=== PATIENT | male | born 1955 | race Caucasian/White ===

== ENCOUNTER 2021-10-22 19:13 | Emergency (ER) | payer MEDICARE, BC, SELFPAY ==
--- NOTE | ~2021-10-22 | XR_ITS ---
EXAMINATION: XR CHEST CLINICAL INFORMATION: Shortness of breath and positive for Covid. COMPARISON: None TECHNIQUE: AP view of the chest was obtained. FINDINGS: Multifocal hazy airspace opacities. Questionable small right pleural effusion. No pneumothorax. Normal appearance of the cardiomediastinal silhouette. No acute osseous findings. Moderate degenerative changes of the right shoulder. XR/XR chest 1V IMPRESSION: Multifocal airspace opacities worrisome for multifocal pneumonia. Small right pleural effusion.
[2021-10-22 19:17] VITALS: BP 127/74; PULSE 87; RESP 16; TEMP 37.2; O2SAT 95; BMI 36.3
[2021-10-22 19:24] VITALS: PULSE 82; RESP 16
--- NOTE | 2021-10-22 19:29 | ED.GENADULT ---
HPI - General Adult General Chief complaint: Fever Stated complaint: +Covid/Fever Time Seen by Provider: 10/22/21 19:19 Source: patient Mode of arrival: ambulatory Limitations: no limitations History of Present Illness HPI narrative: 66 y/o male with history of unprovoked bilateral PEs in 2017 on and diagnosis of COVID-19 on 10/19 presents to the ER from home c/o diarrhea and weakness. He also has some mild SOB as well. His diarrhea started yesterday. Today he reports 3-4 episodes of diffuse watery diarrhea. No associated abdominal pain. No blood in his diarrhea. He states he had fever 103 yesterday that improved with Tylenol. He came to the ER to ?get checked out and be safe.? These due to go to get monoclonal antibodies tomorrow. He states he had the Pfizer vaccine back in January in February. His shortness of breath is very mild and only with exertion. He has no associated chest pain. MD complaint: Diarrhea and COVID-19 Onset (ago): day(s) (1) Location: head, chest and abdomen Radiation: non-radiation Severity: moderate Quality: aching Pain Consistency: intermittent Relieving factors: none Associated symptoms: fever/chills, headaches, loss of appetite, malaise, nausea/vomiting and shortness of breath Treatments prior to arrival: none Related Data Allergies Allergy/AdvReac Type Severity Reaction Status Date / Time No Known Allergies Allergy Verified 10/22/21 19:24 Review of Systems Review of Systems: Constitutional: + Fever, + Chills ENT/Mouth: No sore throat, No Rhinorrhea, No Swallowing Difficulty Eyes: No Eye Pain, No Swelling, No Redness Cardiovascular: No Chest Pain, + SOB, No Orthopnea, No Edema Respiratory: No Cough, No Sputum, No Wheezing, No dyspnea Gastrointestinal: No Nausea, No Vomiting, + Diarrhea, No abdominal Pain, No Hematochezia, No Melena Genitourinary: No Dysuria, No Urinary Frequency, No Hematuria Musculoskeletal: No joint pain, No Myalgias Skin: No Skin Lesions, No rash Neuro: No Weakness, No Numbness, No Dizziness, + Headache Psych: + Anxiety/Panic, No Depression Heme/Lymph: No Bruising, No Lymphadenopathy Endocrine: No Polyuria, No Polydipsia PMFSH Social History Social History Advance Directives: No Advance Directives Information Provided: No Physical Exam Vital Signs: Vital Signs: Last Vital Signs Temp 98.9 F 10/22/21 19:17 Pulse 82 10/22/21 19:24 Resp 16 10/22/21 19:24 BP 127/74 10/22/21 19:17 Pulse Ox 95 10/22/21 19:17 Body Mass Index 36.3 Appearance: Alert. Oriented X3. No acute distress. Eyes: Pupils equal, round and reactive to light. ENT: Pharynx normal. Neck: Normal inspection. Neck supple. CVS: Normal heart rate and rhythm. Pulses normal. Respiratory: No respiratory distress. Breath sounds normal. Abdomen: Softly distended and nontender. +BS x4 Skin: Skin warm and dry. Normal skin color. Normal skin turgor. No rashes. Extremities: No lower extremity edema. No calf tenderness Neuro: Oriented X 3. No motor deficit. No sensory deficit. Course Course Course Narrative: 66-year-old male with history of PEs on Eliquis presents to the ER with diarrhea in the setting of positive COVID-19. He states he is mildly shortness of breath but has no chest pain. His vital signs arrival are within normal limits. He appears well, nontoxic. His lungs are clear. His abdomen is nontender and benign. Will get basic lab workup to rule out dehydration given his reports of diffuse diarrhea. Also get chest x-ray given his shortness of breath. He is on Eliquis and has not missed any doses, doubt recurrent PE. Reevaluation(s) Reevaluation #1: Lab workup is unremarkable. Chest x-ray showing findings consistent with multifocal pneumonia. Nursing did an ambulatory pulse oximetry in the room and with exertion in patient's SpO2 remained 95%. He was not short of breath or dyspneic. He completed IV fluids and was given dose of Decadron for pneumonia. At this time is no role for antibiotics given this is a viral pneumonia. He is tolerating p.o. and feels better after IV fluids and Imodium. He has had no diarrhea here. He is stable for discharge home with supportive care and close outpatient follow-up. He will go to get his monoclonal antibodies tomorrow. Patient agrees with plan was giving warning signs come back to the ER. Medical Decision Making Lab Data Result diagrams: 10/22/21 19:52 10/22/21 19:52 Labs: Lab Results 10/22/21 10/22/21 10/22/21 Range/Units 19:52 19:52 20:43 WBC 8.5 (4.8-10.8) X10*3/uL RBC 4.62 (4.60-5.80) X10*6/uL Hgb 13.8 L (14.0-18.0) g/dl Hct 40.8 L (42.0-52.0) % MCV 88.3 (80.0-98.0) fL MCH 29.9 (27.0-33.0) pg MCHC 33.8 (31.0-36.0) g/dl RDW 13.3 (11.0-16.0) % Plt Count 144 L (160-400) X10*3/uL MPV 9.4 (9.4-12.4) fL Immature Gran % (Auto) 0.2 (0.0-0.4) % Neut % (Auto) 85.5 H (45-73) % Lymph % (Auto) 9.8 L (20-40) % [place] % (Auto) 4.4 (2-11) % Eos % (Auto) 0.0 (0-4) % Baso % (Auto) 0.1 (0-2) % Lymph # (Auto) 0.8 L (1.2-4.9) X10*3/uL [place] # (Auto) 0.4 (0.1-1.2) X10*3/uL Eos # (Auto) 0.0 (0.0-0.4) X10*3/uL Baso # (Auto) 0.0 (0.0-0.2) X10*3/uL Abs Immat Gran (auto) 0.02 (0.00-0.03) X10*3/uL Absolute Neuts (auto) 7.2 (2.0-8.3) x10*3/uL Absolute Nucleated RBC 0.000 (0.0-0.012) X10*3/uL Nucleated RBC % (auto) 0.0 (0.0-0.2) /100WBC Sodium 134 L (135-145) mmol/L Potassium 3.8 (3.3-5.1) mmol/L Chloride 100 (96-108) mmol/L Carbon Dioxide 23 (22-29) mmol/L Anion Gap 15 (12-20) BUN 12 (9-16) mg/dL Creatinine 1.09 (0.5-1.4) mg/dL Estim Creat Clear Calc 93.4 Estimated GFR > 60 Random Glucose 131 H (60-115) mg/dL Calcium 8.2 L (8.4-10.2) mg/dL Magnesium 1.6 (1.6-2.6) mg/dL Total Bilirubin 0.4 (0.0-1.0) mg/dL AST 61 H (5-37) U/L ALT 42 H (0-40) U/L Alkaline Phosphatase 70 (39-117) U/L Total Protein 6.6 (6.5-8.0) g/dL Albumin 3.7 (3.5-5.0) g/dL Urine Color YELLOW Urine Appearance CLEAR Urine pH 6.0 (5.0-8.0) Ur Specific [place] 1.015 (1.005-1.025) Urine Protein 2+ H (NEG-TRACE) MG/DL Urine Glucose (UA) NEG (NEG) MG/DL Urine Ketones NEG (NEG) MG/DL Urine Blood 2+ H (NEG) Urine Nitrite NEG (NEG) Ur Leukocyte Esterase NEG (NEG) Urine RBC 1-4 (0) /HPF Urine WBC 0 (0-4) /HPF Ur Squamous Epith Cells 1+ /LPF Urine Bacteria 1+ /LPF Discharge Plan Discharge Clinical Impression: COVID-19 Diarrhea Qualifiers: Diarrhea type: unspecified type Qualified Code(s): R19.7 - Diarrhea, unspecified Patient Disposition: Home, Self-Care Instructions: Covid-19 Viral Syndrome and Novel Coronavirus (ED) Hey/Ath, Acute Diarrhea (ED) Additional Instructions: Your lab workup today was unremarkable. No evidence of dehydration. Your chest x-ray showed findings consistent with COVID pneumonia. Your oxygen levels remained stable. If your shortness of breath worsens come back to the hospital. Recommend monitoring her oxygen levels at home with a pulse oximeter. If oxygen level drops less than 90% come to the emergency room. Rest and stay hydrated. Make sure to drink plenty of water. Recommend [id number] Imodium or Pepto-Bismol as needed for diarrhea. Follow-up with your doctor next week.
[2021-10-22] MEDS: 0.9 % Sodium Chloride 1,000 ML 999 ML IVCONT (19:55)
[2021-10-22 19:57] LABS: Basophils Percent Auto 0.1 % (0-2); Hematocrit 40.8 % (42.0-52.0); Hemoglobin 13.8 g/dl (14.0-18.0); Imm Gran Abs Auto 0.02 X10*3/uL (0.00-0.03); Imm Gran Pct Auto 0.2 % (0.0-0.4); Lymphocytes Absolute Auto 0.8 X10*3/uL (1.2-4.9); Lymphocytes Percent Auto 9.8 % (20-40); MANUAL DIFF FLAG NO; Mean Corpuscular HGB Conc 33.8 g/dl (31.0-36.0); Mean Corpuscular Hemoglobin 29.9 pg (27.0-33.0); Mean Corpuscular Volume 88.3 fL (80.0-98.0); Mean Platelet Volume 9.4 fL (9.4-12.4); Monocytes Absolute Auto 0.4 X10*3/uL (0.1-1.2); Monocytes Percent Auto 4.4 % (2-11); Neutrophils Absolute Auto 7.2 x10*3/uL (2.0-8.3); Neutrophils Percent Auto 85.5 % (45-73); Platelet Count 144 X10*3/uL (160-400); Red Blood Count 4.62 X10*6/uL (4.60-5.80); Red Cell Distribution Width 13.3 % (11.0-16.0); White Blood Count 8.5 X10*3/uL (4.8-10.8)
[2021-10-22] MEDS: Loperamide HCl 2 MG CAPSULE 4 MG PO (20:21)
[2021-10-22] MEDS: dexAMETHasone sod phosphate 4 MG/ML VIAL 8 MG IVPUSH (20:22)
[2021-10-22 20:27] LABS: Alanine Aminotransferase 42 U/L (0-40); Albumin Level 3.7 g/dL (3.5-5.0); Alkaline Phosphatase 70 U/L (39-117); Anion Gap 15 (12-20); Aspartate Amino Transferase 61 U/L (5-37); Bilirubin Total 0.4 mg/dL (0.0-1.0); Blood Urea Nitrogen 12 mg/dL (9-16); Calcium 8.2 mg/dL (8.4-10.2); Carbon Dioxide 23 mmol/L (22-29); Chloride 100 mmol/L (96-108); Creatinine Clr Calc Pharmacy 93.4; Estimated Glomerular Filt Rate > 60; Glucose Random 131 mg/dL (60-115); Magnesium 1.6 mg/dL (1.6-2.6); Potassium 3.8 mmol/L (3.3-5.1); Sodium 134 mmol/L (135-145); Total Protein 6.6 g/dL (6.5-8.0)
--- NOTE | 2021-10-22 20:29 | PC.NURSE ---
Provider at bedside for primary eval and to discuss lab/imaging with pt
--- NOTE | 2021-10-22 20:36 | PC.NURSE ---
this nurse ambulated pt with 02 sat at providers request. pt maintained 02 sat of 95% on room air while ambulating around room. pt denied any SOB, chest pain or dizziness while ambulating. provider notified. pt now in bathroom providing urine sample
[2021-10-22] MEDS: Potassium Chloride ER 20 MEQ TAB.ER.PRT 40 MEQ PO (20:51)
[2021-10-22] MEDS: Magnesium Oxide 400 MG TABLET 800 MG PO (20:52)
[2021-10-22 20:54] LABS: Appearance Urine CLEAR; Color Urine YELLOW; Glucose Urine UA NEG (NEG); Leukocyte Esterase Urine NEG (NEG); Nitrite Urine NEG (NEG); Specific Gravity - Urine 1.015 (1.005-1.025); UACC Culture Trigger NO; Urine Blood 2+ (NEG); Urine Ketones NEG (NEG); Urine Protein 2+ MG/DL (NEG-TRACE)
[2021-10-22 21:01] LABS: Squamous Epithelial Cell Urine 1+ /LPF
[2021-10-22 21:02] LABS: Bacteria Urine 1+ /LPF; WBC Urine 0 /HPF (0-4)
[2021-10-22 21:39] VITALS: BP 118/64; PULSE 77; RESP 16; TEMP 37.5; O2SAT 94
== END 2021-10-22 21:48 | disposition home or self-care (01) ==
PROVIDERS: Physician Assistant Medical; Emergency Provider Internal Medicine; PCP Internal Medicine
DX: U07.1 COVID-19 (principal); R50.9 Fever, unspecified; R19.7 Diarrhea, unspecified; Z79.01 Long term (current) use of anticoagulants; Z79.899 Other long term (current) drug therapy
CPT/HCPCS: 36415; 71045; 80053; 81001; 83735; 85025; 96361; 96374; 99284; J1100

== ENCOUNTER 2021-10-24 15:59 | Emergency (ER) | payer MEDICARE, BC, SELFPAY ==
--- NOTE | ~2021-10-24 | CT_ITS ---
EXAMINATION: CT ANGIOGRAM OF THE CHEST WITH AND WITHOUT CONTRAST (CT PULMONARY ANGIOGRAM FOR PE) CLINICAL INFORMATION: Reason for Exam cough covid + hemoptysis COMPARISON: None TECHNIQUE: Prior to contrast administration, noncontrast localization images were obtained. Subsequently, multidetector volumetric imaging was performed from the thoracic inlet to below the diaphragms following the administration of 70 mL Omnipaque 350 intravenous contrast. No contrast reaction reported Sagittal, coronal, and MIP oblique sagittal reformatted images were obtained on the CT workstation, uploaded to PACS, and reviewed. This CT examination was performed using dose optimization techniques as appropriate, variously including the following: *Automated exposure control *Adjustment of mA and/or kV according to patient size (this includes techniques or standardized protocols for targeted exams where dose is matched to indication/reason for exam; i.e. extremities or head) *Use of iterative reconstruction technique Total exam dose-length product 431 mGy-cm FINDINGS: QUALITY OF STUDY/CONTRAST BOLUS: Satisfactory. PULMONARY ARTERIES: No central or segmental pulmonary emboli. THORACIC AORTA: No aneurysm or dissection. LUNG: Extensive patchy groundglass opacities throughout all lobes. PLEURA: No pleural effusion or pneumothorax. MEDIASTINUM: Normal heart size. No pericardial effusion. Mild mediastinal lymphadenopathy. No evidence of septal bowing or right heart strain. CHEST WALL/AXILLA: No axillary or internal mammary lymphadenopathy. OSSEOUS STRUCTURES: No acute or suspicious osseous abnormality. UPPER ABDOMEN: Unremarkable. No reflux of contrast into the hepatic veins to suggest elevated right heart pressures. CT/CT angio chest PE protocol IMPRESSION: No pulmonary arterial filling defects to indicate embolic disease. There are extensive dense groundglass opacities throughout all lobes consistent with atypical/Covid pneumonia. Mild mediastinal lymphadenopathy. VTE: negative
[2021-10-24 16:06] VITALS: BP 111/69; PULSE 70; RESP 18; TEMP 36.7; O2SAT 95; BMI 36.3
--- NOTE | 2021-10-24 17:27 | ED_ITS ---
HPI - URI/Sore Throat General Chief Complaint: Upper Respiratory Symptoms Stated Complaint: COVID+ coughing up blood Time Seen by Provider: 10/24/21 17:05 Source: patient Mode of arrival: ambulatory Limitations: no limitations History of Present Illness HPI Narrative: Patient with COVID symptoms for last 6 days already been vaccinated retested positive for COVID-19 received antibodies treatment yesterday on Eliquis for unprovoked PE since 2018 comes here for coughing which is mostly dry cough had some hemoptysis with blood clots prior to arrival patient does have diarrhea no black stool no bleeding from any other place. Patient saturating 95% room air Related Data Previous Rx's Medication Instructions Recorded codeine 10 mg-guaifenesin 100 mg/5 10 ml PO Q4-6H PRN #237 ml 10/24/21 mL oral liquid dexamethasone 6 mg tablet 6 mg PO DAILY #7 tab 10/24/21 (Decadron) Allergies Allergy/AdvReac Type Severity Reaction Status Date / Time No Known Allergies Allergy Verified 10/22/21 19:24 Review of Systems Review of Systems: Yes all other systems are reviewed and are negative [facility] Social History Social History Advance Directives: No Advance Directives Information Provided: No Physical Exam Vital Signs: Vital Signs: Last Vital Signs Temp 98.0 F 10/24/21 16:06 Pulse 74 10/24/21 20:04 Resp 16 10/24/21 20:04 BP 112/62 10/24/21 20:04 Pulse Ox 96 10/24/21 20:54 Body Mass Index 36.3 Appearance: Alert. Oriented X3. No acute distress. Eyes: No pallor icterus ENT: Pharynx normal. Oral Mucosa moist Neck: Normal inspection. Neck supple. CVS: Normal heart rate and rhythm. Pulses normal. Respiratory: No respiratory distress. Equal air entry bilateral, no wheezing/rales/rhonchi occasional cough Abdomen: Soft and nontender. Bowel sounds are present, no mass palpable, Skin: Skin warm and dry. Normal skin color. Normal skin turgor. Extremities: No lower extremity edema. No calf tenderness Neuro: Oriented X 3. MDM - URI/Sore Throat MDM Narrative Medical decision making narrative: Patient COVID-[address] negative for PE with last patient does hold Eliquis for now and give him cough syrup. Patient's is allergic to codeine but in the ER had cough syrup without any hives which he got in the past 40 years ago when he used codeine Lab Data Attestation: I reviewed the patient's lab results. Result diagrams: 10/24/21 17:44 10/24/21 17:46 Labs: Lab Results 10/24/21 10/24/21 10/24/21 Range/Units 17:44 17:44 17:46 WBC 10.9 H (4.8-10.8) X10*3/uL RBC 4.63 (4.60-5.80) X10*6/uL Hgb 13.7 L (14.0-18.0) g/dl Hct 41.0 L (42.0-52.0) % MCV 88.6 (80.0-98.0) fL MCH 29.6 (27.0-33.0) pg MCHC 33.4 (31.0-36.0) g/dl RDW 13.8 (11.0-16.0) % Plt Count 194 D (160-400) X10*3/uL MPV 10.0 (9.4-12.4) fL Immature Gran % (Auto) 0.9 H (0.0-0.4) % Neut % (Auto) 81.5 H (45-73) % Lymph % (Auto) 13.5 L (20-40) % [place] % (Auto) 4.0 (2-11) % Eos % (Auto) 0.0 (0-4) % Baso % (Auto) 0.1 (0-2) % Lymph # (Auto) 1.5 (1.2-4.9) X10*3/uL [place] # (Auto) 0.4 (0.1-1.2) X10*3/uL Eos # (Auto) 0.0 (0.0-0.4) X10*3/uL Baso # (Auto) 0.0 (0.0-0.2) X10*3/uL Abs Immat Gran (auto) 0.10 H (0.00-0.03) X10*3/uL Absolute Neuts (auto) 8.9 H (2.0-8.3) x10*3/uL Absolute Nucleated RBC 0.000 (0.0-0.012) X10*3/uL Nucleated RBC % (auto) 0.0 (0.0-0.2) /100WBC PT 15.5 H (9.9-13.0) SEC INR 1.4 H (0.9-1.1) Sodium 137 (135-145) mmol/L Potassium 4.1 (3.3-5.1) mmol/L Chloride 102 (96-108) mmol/L Carbon Dioxide 26 (22-29) mmol/L Anion Gap 13 (12-20) BUN 16 (9-16) mg/dL Creatinine 0.97 (0.5-1.4) mg/dL Estim Creat Clear Calc 105.0 Estimated GFR > 60 Random Glucose 118 H (60-115) mg/dL Calcium 8.2 L (8.4-10.2) mg/dL Magnesium 2.0 (1.6-2.6) mg/dL Total Bilirubin 0.7 (0.0-1.0) mg/dL AST 83 H (5-37) U/L ALT 48 H (0-40) U/L Alkaline Phosphatase 66 (39-117) U/L Total Protein 6.4 L (6.5-8.0) g/dL Albumin 3.5 (3.5-5.0) g/dL Discharge Plan Discharge Clinical Impression: COVID-19, Cough with hemoptysis Patient Disposition: Home, Self-Care Instructions: Hemoptysis (ED), COVID-19 (Coronavirus Disease 2019) (ED) Additional Instructions: Stop Eliquis for now, restart in 2-3 days if no blood in the sputum, if blood in sputum continues do not start Eliquis and report to your PCP Decadron and cough syrup as advised Check your oxygen at home if it is less than 92% come to the ER Prescriptions: New dexamethasone [Decadron] 6 mg tablet 6 mg PO DAILY Qty: 7 RF: 0 codeine-guaifenesin 10-100 mg/5 mL liquid 10 ml PO Q4-6H PRN (Reason: cough) Qty: 237 RF: 0 Interventions: ED Discharge Assessment Last Done: 10/24/21 22:46 Discharge Date/Time: 10/24/21 22:48
[2021-10-24] MEDS: guaiFEN/Codeine SF 200/20/10ML 10 ML LIQUID PO (17:46)
[2021-10-24 17:52] LABS: MANUAL DIFF FLAG NO
[2021-10-24 17:57] LABS: Basophils Percent Auto 0.1 % (0-2); Hemoglobin 13.7 g/dl (14.0-18.0); Imm Gran Pct Auto 0.9 % (0.0-0.4); Lymphocytes Absolute Auto 1.5 X10*3/uL (1.2-4.9); Lymphocytes Percent Auto 13.5 % (20-40); Mean Corpuscular HGB Conc 33.4 g/dl (31.0-36.0); Mean Corpuscular Hemoglobin 29.6 pg (27.0-33.0); Mean Corpuscular Volume 88.6 fL (80.0-98.0); Monocytes Absolute Auto 0.4 X10*3/uL (0.1-1.2); Neutrophils Absolute Auto 8.9 x10*3/uL (2.0-8.3); Neutrophils Percent Auto 81.5 % (45-73); Platelet Count 194 X10*3/uL (160-400); Red Blood Count 4.63 X10*6/uL (4.60-5.80); Red Cell Distribution Width 13.8 % (11.0-16.0); White Blood Count 10.9 X10*3/uL (4.8-10.8)
[2021-10-24 18:04] LABS: INTERNATIONAL NORM RATIO 1.4 (0.9-1.1); Prothrombin Time 15.5 SEC (9.9-13.0)
[2021-10-24 18:12] LABS: Alanine Aminotransferase 48 U/L (0-40); Albumin Level 3.5 g/dL (3.5-5.0); Alkaline Phosphatase 66 U/L (39-117); Anion Gap 13 (12-20); Aspartate Amino Transferase 83 U/L (5-37); Bilirubin Total 0.7 mg/dL (0.0-1.0); Blood Urea Nitrogen 16 mg/dL (9-16); Calcium 8.2 mg/dL (8.4-10.2); Carbon Dioxide 26 mmol/L (22-29); Chloride 102 mmol/L (96-108); Estimated Glomerular Filt Rate > 60; Glucose Random 118 mg/dL (60-115); Potassium 4.1 mmol/L (3.3-5.1); Sodium 137 mmol/L (135-145); Total Protein 6.4 g/dL (6.5-8.0)
[2021-10-24] MEDS: iohexoL 350 MG/ML 100 ML INFUS..BTL IV (19:01)
[2021-10-24 20:04] VITALS: BP 112/62; PULSE 74; RESP 16; O2SAT 93
[2021-10-24] MEDS: dexAMETHasone sod phosphate 10 MG/ML VIAL IVPUSH (20:16)
[2021-10-24] MEDS: 0.9 % Sodium Chloride 1,000 ML 999 ML IVCONT (20:16)
[2021-10-24 20:54] VITALS: O2SAT 96
== END 2021-10-24 22:48 | disposition home or self-care (01) ==
PROVIDERS: Emergency Provider Internal Medicine; PCP Internal Medicine
DX: U07.1 COVID-19 (principal); R04.2 Hemoptysis; Z86.711 Personal history of pulmonary embolism; Z79.01 Long term (current) use of anticoagulants
CPT/HCPCS: 36415; 71275; 80053; 83735; 85025; 85610; 96361; 96374; 99284; J1100; Q9967

== ENCOUNTER 2021-10-26 02:44 | Inpatient (IN) | payer MEDICARE, BC, SELFPAY ==
[2021-10-26] VITALS (11 sets, daily range): BP systolic 115–147; BP diastolic 57–90; PULSE 66–77; RESP 17–27; TEMP 36.6–37.2; O2SAT 88–96; BMI 36.3; BMI 36.1
--- NOTE | ~2021-10-26 | XR_ITS ---
EXAMINATION: XR CHEST CLINICAL INFORMATION: Covid positive. Follow-up. COMPARISON: Chest 10/22/2021 TECHNIQUE: Frontal view of the chest was obtained. FINDINGS: The lungs are moderately expanded with patchy consolidations in both midlung regions slightly progressed since 10/22/2021. There is no pleural effusion. Heart size and progress clarities normal. There is mild spondylosis dorsal spine. No lytic process. There is left lower rotator cuff's surgery changes. XR/XR chest 1V IMPRESSION: Bilateral midlung infiltrates slightly progressed since 10/22/2021
--- NOTE | ~2021-10-26 | CT_ITS ---
EXAMINATION: CT ANGIOGRAM OF THE CHEST WITH AND WITHOUT CONTRAST (CT PULMONARY ANGIOGRAM FOR PE) CLINICAL INFORMATION: Reason for Exam evaluate for PE . Chest pain. Covid infection. Cough. COMPARISON: Previous chest x-ray from earlier the same day and chest CTA 10/24/2021 TECHNIQUE: Prior to contrast administration, noncontrast localization images were obtained. Subsequently, multidetector volumetric imaging was performed from the thoracic inlet to below the diaphragms following the administration of 71 mL Omnipaque 350 intravenous contrast. No contrast reaction reported Sagittal, coronal, and MIP oblique sagittal reformatted images were obtained on the CT workstation, uploaded to PACS, and reviewed. This CT examination was performed using dose optimization techniques as appropriate, variously including the following: *Automated exposure control *Adjustment of mA and/or kV according to patient size (this includes techniques or standardized protocols for targeted exams where dose is matched to indication/reason for exam; i.e. extremities or head) *Use of iterative reconstruction technique Total exam dose-length product 498 mGy-cm FINDINGS: QUALITY OF STUDY/CONTRAST BOLUS: Satisfactory. PULMONARY ARTERIES: No central or segmental pulmonary emboli. THORACIC AORTA: No aneurysm or dissection. LUNG: There are bilateral groundglass attenuation infiltrates similar to 10/24/[address] appearance is compatible with Covid pneumonia. PLEURA: No pleural effusion or pneumothorax. MEDIASTINUM: Normal heart size. No pericardial effusion. There are small mediastinal lymph nodes similar to previous exam. No enlarged hilar or mediastinal lymphadenopathy. No evidence of septal bowing or right heart strain. CHEST WALL/AXILLA: No axillary or internal mammary lymphadenopathy. OSSEOUS STRUCTURES: No acute or suspicious osseous abnormality. There are degenerative changes of the spine. UPPER ABDOMEN: Unremarkable. No reflux of contrast into the hepatic veins to suggest elevated right heart pressures. CT/CT angio chest PE protocol IMPRESSION: No evidence of pulmonary embolism. Stable bilateral groundglass attenuation infiltrates compatible with Covid infection. VTE: negative
--- NOTE | ~2021-10-26 | XR_ITS ---
EXAMINATION: XR CHEST CLINICAL INFORMATION: Hypoxia, COVID infection COMPARISON: Chest radiographs 10/26/2021, 10/22/2021, CT chest 10/26/2021. TECHNIQUE: Portable upright AP view of the chest was obtained. FINDINGS: The patchy bilateral scattered predominantly peripheral airspace opacities are increased in confluence with some increased distribution on the right. There is no pneumothorax or pneumomediastinum. No effusion. Heart size normal. Vascularity normal. XR/XR chest 1V IMPRESSION: Airspace opacities increased since prior exam 10/26/2021. No pneumothorax or effusion.
--- NOTE | 2021-10-26 07:23 | ED.SOB ---
HPI - SOB/Dyspnea General Chief Complaint: Dyspnea Stated Complaint: covid pna, low o2 Time Seen by Provider: 10/26/21 07:23 Source: patient Mode of arrival: EMS History of Present Illness HPI Narrative: 66-year-old male who is brought in by EMS for worsening shortness of breath since approximately 0100 and has known COVID-19 infection. He denies any associated chest pain/palpitations or dizziness, headache, diaphoresis or nausea. He states he took his pulse ox which was 88%. Related Data Previous Rx's Medication Instructions Recorded codeine 10 mg-guaifenesin 100 mg/5 10 ml PO Q4-6H PRN #237 ml 10/24/21 mL oral liquid dexamethasone 6 mg tablet 6 mg PO DAILY #7 tab 10/24/21 (Decadron) Allergies Allergy/AdvReac Type Severity Reaction Status Date / Time No Known Allergies Allergy Verified 10/22/21 19:24 Review of Systems Review of Systems: Pertinent positives and negatives as stated in HPI 10 point review of systems is otherwise negative. [facility] Past Medical History Source: nursing notes reviewed Social History Social History Advance Directives: No Physical Exam Vital Signs: Vital Signs: Last Vital Signs Temp 98.9 F 10/26/21 03:05 Pulse 71 10/26/21 03:05 Resp 20 10/26/21 03:05 BP 140/80 H 10/26/21 03:05 Pulse Ox 96 10/26/21 03:05 Oxygen Flow Rate 3 10/26/21 03:05 Body Mass Index 36.3 VITAL SIGNS: Reviewed. GENERAL: Well developed, well nourished, mild distress. HEAD: Normocephalic/atraumatic EYES: PERRLA, EOMI OROPHARYNX: no oral lesions noted, posterior pharynx clear NECK: Supple, no adenopathy LUNGS: Normal breath sounds, tachypnea, increased work of breathing. SpO2<96> on nasal cannula. CARDIOVASCULAR: Regular rate and rhythm without noted murmurs, no JVD or lower extremity edema. ABDOMEN: Soft, non-tender, non-distended with bowel sounds. SKIN: Inspection of the skin reveals no rashes NEUROLOGIC: Alert and oriented x 4. Course Course Course Narrative: 66-year-old male with history and clinical presentation of COVID-19 with progressive shortness of breath and has received antibody therapy through [facility]. Attempted to titrate the patient off of oxygen, however on 1 L via nasal cannula his oxygenation was between 90 and 92% and on walk test was noted to drop to 86%. I discussed this case with inpatient hospitalist who accepts admission. Discharge Plan Discharge Clinical Impression: COVID-19, Hypoxia Patient Disposition: Admitted As Inpatient
[2021-10-26 07:58] LABS: MANUAL DIFF FLAG NO
[2021-10-26 07:59] LABS: Hematocrit 41.6 % (42.0-52.0); Hemoglobin 14.2 g/dl (14.0-18.0); Imm Gran Abs Auto 0.05 X10*3/uL (0.00-0.03); Imm Gran Pct Auto 0.6 % (0.0-0.4); Lymphocytes Absolute Auto 0.9 X10*3/uL (1.2-4.9); Lymphocytes Percent Auto 10.4 % (20-40); Mean Corpuscular HGB Conc 34.1 g/dl (31.0-36.0); Mean Corpuscular Hemoglobin 29.8 pg (27.0-33.0); Mean Corpuscular Volume 87.2 fL (80.0-98.0); Mean Platelet Volume 9.9 fL (9.4-12.4); Monocytes Absolute Auto 0.7 X10*3/uL (0.1-1.2); Neutrophils Absolute Auto 6.6 x10*3/uL (2.0-8.3); Platelet Count 295 X10*3/uL (160-400); Red Blood Count 4.77 X10*6/uL (4.60-5.80); Red Cell Distribution Width 13.4 % (11.0-16.0); White Blood Count 8.2 X10*3/uL (4.8-10.8)
[2021-10-26 08:16] LABS: Alanine Aminotransferase 54 U/L (0-40); Albumin Level 3.6 g/dL (3.5-5.0); Alkaline Phosphatase 60 U/L (39-117); Anion Gap 16 (12-20); Aspartate Amino Transferase 56 U/L (5-37); Bilirubin Total 0.8 mg/dL (0.0-1.0); Blood Urea Nitrogen 16 mg/dL (9-16); Calcium 8.6 mg/dL (8.4-10.2); Carbon Dioxide 25 mmol/L (22-29); Chloride 104 mmol/L (96-108); Creatinine Clr Calc Pharmacy 124.2; Estimated Glomerular Filt Rate > 60; Glucose Random 125 mg/dL (60-115); Potassium 4.1 mmol/L (3.3-5.1); Sodium 141 mmol/L (135-145); Total Protein 6.5 g/dL (6.5-8.0)
--- NOTE | 2021-10-26 10:00 | PC.NURSE ---
pt seen by hosp (dr. gonsalves) pt aware of plan of care for admission to hosp.
[2021-10-26 10:01] LABS: C Reactive Protein 5.99 mg/dL (< or = 0.50); Lactate Dehydrogenase 444 U/L (118-273)
[2021-10-26 10:23] LABS: Ferritin 926 ng/mL (20-250)
[2021-10-26 10:33] LABS: Procalcitonin 0.34 ng/mL
--- NOTE | 2021-10-26 10:40 | PM.IMHP ---
History of Present Illness Date of Service: 10/26/21 Chief Complaint: Shortness of breath This is a 66 yo relatively healthy M, who has a PMH of spontaneous Pulmonary embolism - on Eliquis, who has received Pfizer vaccine x 2 (not the booster as of yet), who presents to the hospital with complaints of shortness of breath and cough. He is known to be COVID positive. The patient reports about 10 days [employer], he began having a cough and did antigen testing at home which came back positive for COVID (x 2 -- 36 hours apart). He reports that he underwent formal testing several days later, which confirmed COVID positivity. He reports that his symptoms progressed to include fevers over the next several days with associated diarrhea. He initially presented to the ED on 10/22 for this with essentially a negative work up and specifically no hypoxia. He was discharged home and returned to the ED on 10/24 after bouts of hemoptysis with bloot clots (this has since improved and is now only blood tinged). During this ED visit, he again was not hypoxic and he was discharged home with instructions to hold his Eliquis for 2-3 days. He now returns today with worsening shortness of breath and hypoxia (measured his saturations at home which were 88% and below). In the interim, the patient has completed monoclonal antibiotics at [facility] on 10/23. Upon arrival to the ED, patient was noted to have saturations between 90 and 92% at rest on 1L. With exetion he dropped to 86%. He will not be admitted for further treatment. Review of Systems Review of Systems: negative except HPI [facility] Medical History (Updated 10/26/21 @ 13:10 by Michele Bolanos MD) Pulmonary embolism Pertinent family history: Reports a history of venous thromboemoblism in his daughter as well as father. Surgical History (Updated 10/26/21 @ 13:11 by Michele Bolanos MD) No pertinent past surgical history Social History (Updated 10/26/21 @ 13:12 by Michele Bolanos MD) Alcohol intake: current Alcohol intake frequency: a few times a week Patient Tobacco Use Status: Never used Tobacco Use of substances other than those prescribed or required for medical reasons: No Advance Directives: Yes Advance Directives on File: Yes Advance Directives Date on File: 10/26/21 Meds Allergies Allergy/AdvReac Type Severity Reaction Status Date / Time codeine Allergy Hives Verified 10/26/21 09:52 oxycodone Allergy Hives Verified 10/26/21 09:52 tramadol Allergy Hives Verified 10/26/21 09:52 Active Medications: Current Medications Pharmacy Consult (Consult Rx Perform Med Rec) 1 each MISCELLANE ONCE PRN PRN Reason: Consult order Home Medications Medication Instructions Recorded Confirmed Last Taken Type acetaminophen 650 mg tablet 650 mg PO Q6H PRN 10/26/21 10/26/21 10/25/21 History apixaban 2.5 mg tablet (Eliquis) 1 tab PO BID 10/26/21 10/26/21 10/23/21 History [id number] C 250 1 tab PO DAILY 10/26/21 10/26/21 10/25/21 History mg-herbal no.124 11.66 mg chewable tablet (Airborne Gummy) Physical Exam Vital Signs and Narrative: Vital Signs: Last Vital Signs Temp 97.8 F 10/26/21 10:38 Pulse 76 10/26/21 10:38 Resp 22 H 10/26/21 10:38 BP 147/71 H 10/26/21 10:38 Pulse Ox 93 10/26/21 10:38 Oxygen Flow Rate 3 10/26/21 03:05 Body Mass Index 36.3 Const: Other: Constitutional - Awake and Alert, No apparent distress Eyes - PERRLA, EOMI Cardiovascular - S1S2, RRR, No edema Respiratory - Normal lung expansion, No rales or wheezes, no respiratory distress at rest Gastrointestinal - NT / ND; +BS; No rebound or guarding - No CVA tenderness Extremities - no calf tenderness bilaterally, no swelling Musculoskeletal - Normal inspection, normal ROM Skin - Warm/Dry Neurological - Alert & oriented x3, No focal deficit Psychological - Appropriate affect Results Labs CBC and Chem 7: 10/26/21 07:50 10/26/21 07:50 Labs: Laboratory Results - last 24 hr 10/26/21 10/26/21 10/26/21 07:50 07:50 07:50 MCV 87.2 MCH 29.8 MCHC 34.1 RDW 13.4 Plt Count 295 D MPV 9.9 Immature Gran % (Auto) 0.6 H Neut % (Auto) 81.0 H Lymph % (Auto) 10.4 L [place] % (Auto) 8.0 Eos % (Auto) 0.0 Baso % (Auto) 0.0 Lymph # (Auto) 0.9 L [place] # (Auto) 0.7 Eos # (Auto) 0.0 Baso # (Auto) 0.0 Abs Immat Gran (auto) 0.05 H Absolute Neuts (auto) 6.6 Absolute Nucleated RBC 0.000 Nucleated RBC % (auto) 0.0 Anion Gap 16 Estim Creat Clear Calc 124.2 Estimated GFR > 60 Random Glucose 125 H Calcium 8.6 Ferritin 926 H Total Bilirubin 0.8 AST 56 H ALT 54 H Alkaline Phosphatase 60 Lactate Dehydrogenase 444 H C-Reactive Protein 5.99 H Total Protein 6.5 Albumin 3.6 Procalcitonin 0.34 Imaging Radiologist's Impressions: Impressions Chest X-Ray 10/26/21 10:24 IMPRESSION: Bilateral midlung infiltrates slightly progressed since 10/22/2021 Assessment and Plan (1) COVID-19: Status: Acute This is a 66 yo M with a PMH of PE on Eliquis, vaccinated with [employer] (in ), who began having symptoms of COVID 19, about 10 days ago. Initially they were mild but now have progressed to progressive shortness of breath and hypoxia. He has received monoclonal antibiodies on 10/23/21 and will be admitted for further treatment. 1. COVID-19 causing acute respriatory failure with hypoxia Continue supplemental O2 to maintain saturation >90; currently on 2L IV decadron and ID consult Trend inflammatory biomakers Jimmy Procalcitonin 2. History of Pulmonary embolism Was off Eliquis for 2 days due to hemoptysis / clots -- this has since improved. Repeat CTA negative for PE -- infiltrates about the same as 2 days ago. Will resume his Eliquis (on an 2.5mg BID -- unclear why, but will continue this dose for the time being). 3. Alcohol use endorses 5-6 beers three times a week no prior withdrawal symptoms monitor for now Full Code DVT pptx -- on Eliquis Endorses his as HCP Quality Stroke Does the patient have a stroke diagnosis?: No VTE Prior VTE?: No VTE Risk Level:: Medical - moderate - high VTE Device Contraindication: Treatment Not Indicated VTE Drug Contraindication: N/A - Med Ordered
[2021-10-26] MEDS: Apixaban 2.5 MG TABLET PO ×2 (11:08→20:26)
[2021-10-26] MEDS: dexAMETHasone sod phosphate 4 MG/ML VIAL 6 MG IVPUSH (11:09)
[2021-10-26] MEDS: iohexoL 350 MG/ML 100 ML INFUS..BTL IV (12:04)
--- NOTE | 2021-10-26 17:11 | PC.NURSE ---
Pt used urinal, sat 88% on 2lpm via nc, increased to 3lpm via nc. sat trending up. Visibly pt does not appear in distress, skin color pink, skin warm and dry. Speaking full sentences.
[2021-10-26] MEDS: 0.9 % Sodium Chloride Flush 3 ML SYRINGE IVFLUSH (17:14)
--- NOTE | 2021-10-26 17:15 | PC.NURSE ---
NSR on monitor with pacs
--- NOTE | 2021-10-26 19:37 | PC.NURSE ---
RN assumed care at 1900. Pt alert and oriented x4, calm and cooperative. Pt denies pain, denies chest pain. Pt denies SOB, states breathing feels okay . Pt remains on 3 liters O2. Pt ambulated in room steady on his feet. Pt voided without issues. Vitals stable. Will continue to monitor.
--- NOTE | 2021-10-26 22:10 | P.CNID_ITS ---
History of Present Illness Data of Consult Service Date: 10/26/21 Requesting physician: Fred Bernal Primary Care Provider: Neel Stacy MD [facility] Reason for consult: COVID with hypoxia He presents to hospital with shortness of breath 10-12 days worsening He had received vaccination for COVID January and February. He had received monoclonal antibody three days ago also Review of Systems Review of Systems: Yes all other systems are reviewed and are negative PMFSH Past Medical History Medical History Pulmonary embolism Family History Family history: reviewed and not pertinent Surgical History Surgical History No pertinent past surgical history Social History Social History Household Members: Spouse Housing: House Do you presently have visiting nurse or other home services: No Alcohol intake: current Alcohol intake frequency: a few times a week Patient Tobacco Use Status: Never used Tobacco Advance Directives Date on File: 10/26/21 service: No Current occupational status: employed Meds Allergies Allergy/AdvReac Type Severity Reaction Status Date / Time codeine Allergy Hives Verified 10/26/21 09:52 oxycodone Allergy Hives Verified 10/26/21 09:52 tramadol Allergy Hives Verified 10/26/21 09:52 Active Medications: Current Medications Acetaminophen (Acetaminophen 325 Mg Tablet) 650 mg PO Q6H PRN PRN Reason: Pain, Mild (Pain Scale 1-3) Apixaban (Apixaban 2.5 Mg Tablet) 2.5 mg PO BID [facility] Last Admin: 10/26/21 20:26 Dose: 2.5 mg Documented by: Dexamethasone Sodium Phosphate (Dexamethasone Sod Phosphate 4 Mg/Ml Vial) 6 mg IVPUSH DAILY [facility] Stop: 11/04/21 09:01 Last Admin: 10/26/21 11:09 Dose: 6 mg Documented by: Ondansetron HCl (Ondansetron Hcl 4 Mg/2 Ml Vial) 4 mg IVPUSH Q8H PRN PRN Reason: Nausea and Vomiting Pharmacy Consult (Consult Rx Perform Med Rec) 1 each MISCELLANE ONCE PRN PRN Reason: Consult order Sodium Chloride (0.9 % Sodium Chloride Flush 3 Ml Syringe) 3 ml IVFLUSH QSHIFT [facility] Last Admin: 10/26/21 17:14 Dose: 3 ml Documented by: Home Medications Medication Instructions Recorded Confirmed Last Taken Type acetaminophen 650 mg tablet 650 mg PO Q6H PRN 10/26/21 10/26/21 10/25/21 History [id number] C 250 1 tab PO DAILY 10/26/21 10/26/21 10/25/21 History mg-herbal no.124 11.66 mg chewable tablet (Airborne Gummy) Physical Exam Vital Signs: Vital Signs: Last Vital Signs Temp 98.5 F 10/26/21 20:25 Pulse 68 10/26/21 20:24 Resp 18 10/26/21 20:24 BP 136/78 10/26/21 20:24 Pulse Ox 94 10/26/21 20:24 Oxygen Flow Rate 3 10/26/21 03:05 Body Mass Index 36.3 Const: General: cooperative Eyes: General: appearance abnormal, both eyes Resp: Effort & Inspection: able to speak in complete sentences Cardio: Rate: regular rate Rhythm: regular rhythm GI: Palpation (GI): nontender Extrem: General: Yes normal to inspection Results Labs CBC & Chem 7: 11/01/21 08:11 11/01/21 08:11 Labs: Short CBC 10/26/21 Range/Units 07:50 WBC 8.2 (4.8-10.8) X10*3/uL Hgb 14.2 (14.0-18.0) g/dl Hct 41.6 L (42.0-52.0) % Plt Count 295 D (160-400) X10*3/uL BMP 10/26/21 07:50 Sodium 141 Potassium 4.1 Chloride 104 Carbon Dioxide 25 BUN 16 Creatinine 0.82 Calcium 8.6 Liver Function 10/26/21 Range/Units 07:50 Total Bilirubin 0.8 (0.0-1.0) mg/dL AST 56 H (5-37) U/L ALT 54 H (0-40) U/L Alkaline Phosphatase 60 (39-117) U/L Albumin 3.6 (3.5-5.0) g/dL Assessment and Plan (1) COVID-19: Status: Acute He has had COVID symptoms for some time He is past seven days normal administration Remdesivir (2) Hypoxia: Status: Resolved Oxygen if needed. No Remdesivir increased duration of illness Dexamethasone 6 mg daily for 10 days
--- NOTE | 2021-10-26 23:33 | PC.NURSE ---
Pt remains alert and oriented x4, calm and cooperative. Pt denies pain, denies chest pain. Pt states SOB improved. Pt remains on 3 liters O2 with sat at 94%. IV in right AC intact flushing without difficulty. Vitals stable. Pt transported on tele monitor and portable O2 by [employer] [facility]. Report given to JUAN Montiel.
[2021-10-27] VITALS: BP 139/77; PULSE 68; RESP 18; TEMP 36.2; O2SAT 92
[2021-10-27] MEDS: 0.9 % Sodium Chloride Flush 3 ML SYRINGE IVFLUSH ×3 (00:07→16:10)
[2021-10-27] MEDS: Benzonatate 100 MG CAPSULE PO (01:06)
[2021-10-27] MEDS: Melatonin 3 MG TABLET 6 MG PO ×2 (01:06→21:54)
[2021-10-27 03:45] VITALS: BP 149/85; PULSE 66; RESP 18; O2SAT 95
[2021-10-27 06:09] LABS: MANUAL DIFF FLAG NO
[2021-10-27 06:21] LABS: Basophils Percent Auto 0.1 % (0-2); Hematocrit 41.1 % (42.0-52.0); Hemoglobin 13.6 g/dl (14.0-18.0); Imm Gran Abs Auto 0.15 X10*3/uL (0.00-0.03); Imm Gran Pct Auto 1.1 % (0.0-0.4); Lymphocytes Absolute Auto 1.6 X10*3/uL (1.2-4.9); Lymphocytes Percent Auto 11.6 % (20-40); Mean Corpuscular HGB Conc 33.1 g/dl (31.0-36.0); Mean Corpuscular Hemoglobin 29.5 pg (27.0-33.0); Mean Corpuscular Volume 89.2 fL (80.0-98.0); Mean Platelet Volume 9.7 fL (9.4-12.4); Monocytes Absolute Auto 0.8 X10*3/uL (0.1-1.2); Monocytes Percent Auto 5.4 % (2-11); Neutrophils Absolute Auto 11.5 x10*3/uL (2.0-8.3); Neutrophils Percent Auto 81.8 % (45-73); Platelet Count 339 X10*3/uL (160-400); Red Blood Count 4.61 X10*6/uL (4.60-5.80); Red Cell Distribution Width 13.4 % (11.0-16.0); White Blood Count 14.1 X10*3/uL (4.8-10.8)
[2021-10-27 06:32] LABS: Anion Gap 15 (12-20); Blood Urea Nitrogen 17 mg/dL (9-16); Calcium 8.2 mg/dL (8.4-10.2); Carbon Dioxide 24 mmol/L (22-29); Chloride 105 mmol/L (96-108); Creatinine Clr Calc Pharmacy 119.5; Estimated Glomerular Filt Rate > 60; Glucose Random 111 mg/dL (60-115); Potassium 4.1 mmol/L (3.3-5.1); Sodium 140 mmol/L (135-145)
[2021-10-27 07:08] VITALS: BP 154/80; PULSE 77; RESP 19; TEMP 37.9; O2SAT 94
[2021-10-27] MEDS: Apixaban 2.5 MG TABLET PO ×2 (07:59→14:28)
[2021-10-27] MEDS: dexAMETHasone sod phosphate 4 MG/ML VIAL 6 MG IVPUSH (08:00)
--- NOTE | 2021-10-27 08:33 | MHC.CM.PN ---
Patient is Covid (+); CM spoke with Patient over the phone at [phone] and addressed IMM with him, providing him with the original and placing a copy on the chart.Patient lives in a house with his /HCP and he is independent and working. Home/no services is the goal for dc and CM has initiated and will follow for dc planning. PCP is Dr.Arthur Stacy.
[2021-10-27 09:58] LABS: Lactate Dehydrogenase 417 U/L (118-273)
[2021-10-27 11:07] LABS: Procalcitonin 0.16 ng/mL
[2021-10-27 11:23] VITALS: BP 141/74; PULSE 80; RESP 17; TEMP 37.6; O2SAT 94
--- NOTE | 2021-10-27 12:09 | HO.PM.IMPN ---
Subjective Subjective Date of Service: 10/27/21 Review of Systems Follow up Covid pneumonia Some sob with exertion Denies chest pain, nausea, vomiting, cough All other systems are reviewed and are negative Physical Exam Vital Signs: Vital Signs: Last Vital Signs Temp 99.7 F 10/27/21 11:23 Pulse 80 10/27/21 11:23 Resp 17 10/27/21 11:23 BP 141/74 H 10/27/21 11:23 Pulse Ox 94 10/27/21 11:23 Oxygen Flow Rate 3 10/26/21 03:05 Body Mass Index 36.1 Appearing in no acute distress lungs normal expansion heart regular rate rhythm, clear S1, S2 positive bowel sounds, abdomen is soft, nontender neuro patient is alert x3, no focal deficits Objective Data Active Medications Acetaminophen (Acetaminophen 325 Mg Tablet) 650 mg PO Q6H PRN PRN Reason: Pain, Mild (Pain Scale 1-3) Apixaban (Apixaban 2.5 Mg Tablet) 2.5 mg PO BID [facility] Last Admin: 10/27/21 07:59 Dose: 2.5 mg Documented by: GEORGE Benzonatate (Benzonatate 100 Mg Capsule) 100 mg PO TID PRN PRN Reason: Cough Last Admin: 10/27/21 01:06 Dose: 100 mg Documented by: TEA Dexamethasone Sodium Phosphate (Dexamethasone Sod Phosphate 4 Mg/Ml Vial) 6 mg IVPUSH DAILY [facility] Stop: 11/04/21 09:01 Last Admin: 10/27/21 08:00 Dose: 6 mg Documented by: GEORGE Melatonin (Melatonin 3 Mg Tablet) 6 mg PO BEDTIME PRN PRN Reason: Insomnia Last Admin: 10/27/21 01:06 Dose: 6 mg Documented by: TEA Ondansetron HCl (Ondansetron Hcl 4 Mg/2 Ml Vial) 4 mg IVPUSH Q8H PRN PRN Reason: Nausea and Vomiting Pharmacy Consult (Consult Rx Perform Med Rec) 1 each MISCELLANE ONCE PRN PRN Reason: Consult order Sodium Chloride (0.9 % Sodium Chloride Flush 3 Ml Syringe) 3 ml IVFLUSH QSHIFT [facility] Last Admin: 10/27/21 08:00 Dose: 3 ml Documented by: GEORGE Labs CBC & Chem 7: 10/27/21 05:51 10/27/21 05:51 Labs: Laboratory Results - last 24 hr 10/27/21 10/27/21 10/27/21 05:51 05:51 05:51 MCV 89.2 MCH 29.5 MCHC 33.1 RDW 13.4 Plt Count 339 MPV 9.7 Immature Gran % (Auto) 1.1 H Neut % (Auto) 81.8 H Lymph % (Auto) 11.6 L [place] % (Auto) 5.4 Eos % (Auto) 0.0 Baso % (Auto) 0.1 Lymph # (Auto) 1.6 [place] # (Auto) 0.8 Eos # (Auto) 0.0 Baso # (Auto) 0.0 Abs Immat Gran (auto) 0.15 H Absolute Neuts (auto) 11.5 H Absolute Nucleated RBC 0.000 Nucleated RBC % (auto) 0.0 Anion Gap 15 Estim Creat Clear Calc 119.5 Estimated GFR > 60 Random Glucose 111 Calcium 8.2 L Lactate Dehydrogenase 417 H C-Reactive Protein 3.40 H Procalcitonin 0.16 Assessment and Plan (1) COVID-19: Status: Acute (2) Pulmonary embolism: Status: Acute Assessment and Plan: This is a 66 yo M with a PMH of PE on Eliquis, vaccinated with Pfizer (in ), who began having symptoms of COVID 19, about 10 days ago. Initially they were mild but now have progressed to progressive shortness of breath and hypoxia. He has received monoclonal antibiodies on 10/23/21 and will be admitted for further treatment. COVID-19 causing acute respiratory failure with hypoxia Continue supplemental O2 to maintain saturation >90; currently on 6L Trend inflammatory biomakers ID rec No Remdesivir d/t increased duration of illness Dexamethasone 6 mg daily for 10 days History of Pulmonary embolism Was off Eliquis for 2 days due to hemoptysis / clots -- this has since improved. Repeat CTA negative for PE -- infiltrates about the same as 2 days ago. Will resume his Eliquis 5mg BID Alcohol use endorses 5-6 beers three times a week no prior withdrawal symptoms monitor for now Full Code DVT pptx -- on Eliquis Endorses his as HCP Attending Dr. Bolanos Quality Stroke Does the patient have a stroke diagnosis?: No VTE Prior VTE?: No VTE Risk Level:: Medical - moderate - high VTE Device Contraindication: Treatment Not Indicated VTE Drug Contraindication: N/A - Med Ordered
[2021-10-27 15:17] VITALS: BP 145/80; PULSE 74; RESP 19; TEMP 37.1; O2SAT 97
[2021-10-27 19:31] VITALS: BP 135/70; PULSE 82; RESP 18; TEMP 37.2; O2SAT 93
[2021-10-27] MEDS: Apixaban 5 MG TABLET PO (20:10)
--- NOTE | 2021-10-27 20:54 | PC.NURSE ---
oxygen saturation dropped to low 80' on 5 l via NC with ambulation 25 feet to to the bathroom, same thing happened with standing up to urinate at the bedside. Pt denied sob with these activities. Pt recovered to 90% o2 sat after 2-3 minutes
[2021-10-28] VITALS (7 sets, daily range): BP systolic 133–156; BP diastolic 63–84; PULSE 74–89; RESP 15–20; TEMP 36.6–37.2; O2SAT 90–98
[2021-10-28] MEDS: 0.9 % Sodium Chloride Flush 3 ML SYRINGE IVFLUSH ×3 (00:17→21:47)
[2021-10-28 07:02] LABS: Anion Gap 15 (12-20); Blood Urea Nitrogen 15 mg/dL (9-16); Calcium 7.8 mg/dL (8.4-10.2); Carbon Dioxide 24 mmol/L (22-29); Chloride 104 mmol/L (96-108); Creatinine Clr Calc Pharmacy 125.4; Estimated Glomerular Filt Rate > 60; Glucose Random 96 mg/dL (60-115); Iron 15 mcg/dL (45-160); Percent Iron Saturation 8 % (15-50); Potassium 4.4 mmol/L (3.3-5.1); Sodium 139 mmol/L (135-145); Total Iron Binding Capacity 186 mcg/dL (228-428); Unsaturated Iron Binding 171 ug/dL
[2021-10-28] MEDS: dexAMETHasone sod phosphate 4 MG/ML VIAL 6 MG IVPUSH (08:08)
[2021-10-28] MEDS: Apixaban 5 MG TABLET PO ×2 (08:08→21:47)
[2021-10-28 09:40] LABS: Procalcitonin 0.13 ng/mL
[2021-10-28 09:48] LABS: C Reactive Protein 16.82 mg/dL (< or = 0.50); Lactate Dehydrogenase 384 U/L (118-273)
--- NOTE | 2021-10-28 11:57 | MHC.CM.PN ---
Per ROUNDS discussion, Patient is not yet medically cleared for dc (IV Decadron, 6LO2).Home is the goal for dc and CM will follow for possible need to adjust the dc plan.
--- NOTE | 2021-10-28 14:12 | HO.PM.IMPN ---
Subjective Subjective Date of Service: 10/28/21 Interval History: Seen and examined this morning Follow-up for COVID-19 Still requiring 6 L nasal cannula No significant shortness of breath. No fever, chills, no chest pain Review of Systems Review of Systems: Yes all other systems are reviewed and are negative Constitutional Constitutional: Denies chills and Denies fever(s) Cardiovascular Cardiovascular: Denies chest pain Respiratory Respiratory: Denies cough Gastrointestinal Gastrointestinal: Denies abdominal pain Physical Exam Vital Signs: Vital Signs: Last Vital Signs Temp 98.6 F 10/28/21 11:07 Pulse 87 10/28/21 11:07 Resp 20 10/28/21 11:07 BP 140/67 H 10/28/21 11:07 Pulse Ox 90 L 10/28/21 11:07 Oxygen Flow Rate 3 10/26/21 03:05 BMI result Body Mass Index 36.1 Const: General: comfortable, alert and awake Nutritional Appearance: overweight Orientation/consciousness: patient oriented x3 HENMT: Head: Yes normocephalic and Yes atraumatic Eyes: Sclerae: sclerae normal Pupils: Equal, round and reactive pupils present Resp: Effort & Inspection: normal respiratory effort and no respiratory distress Cardio: Rate: regular rate Rhythm: regular rhythm GI: Palpation (GI): Soft to palpation and nontender Neuro: General: patient oriented x3 Cranial nerves: Yes CN's II-XII intact bilaterally, Yes Equal, round and reactive pupils present and Yes Bilaterally intact EOM present Extrem: Other: Moving all 4 extremities spontaneously Objective Data Active Medications Acetaminophen (Acetaminophen 325 Mg Tablet) 650 mg PO Q6H PRN PRN Reason: Pain, Mild (Pain Scale 1-3) Apixaban (Apixaban 5 Mg Tablet) 5 mg PO BID [facility] Last Admin: 10/28/21 08:08 Dose: 5 mg Documented by: DAIN Benzonatate (Benzonatate 100 Mg Capsule) 100 mg PO TID PRN PRN Reason: Cough Last Admin: 10/27/21 01:06 Dose: 100 mg Documented by: TEA Dexamethasone Sodium Phosphate (Dexamethasone Sod Phosphate 4 Mg/Ml Vial) 6 mg IVPUSH DAILY [facility] Stop: 11/04/21 09:01 Last Admin: 10/28/21 08:08 Dose: 6 mg Documented by: DAIN Melatonin (Melatonin 3 Mg Tablet) 6 mg PO BEDTIME PRN PRN Reason: Insomnia Last Admin: 10/27/21 21:54 Dose: 6 mg Documented by: MEGHAN Ondansetron HCl (Ondansetron Hcl 4 Mg/2 Ml Vial) 4 mg IVPUSH Q8H PRN PRN Reason: Nausea and Vomiting Pharmacy Consult (Consult Rx Perform Med Rec) 1 each MISCELLANE ONCE PRN PRN Reason: Consult order Sodium Chloride (0.9 % Sodium Chloride Flush 3 Ml Syringe) 3 ml IVFLUSH QSHIFT [facility] Last Admin: 10/28/21 08:08 Dose: 3 ml Documented by: DAIN Labs CBC & Chem 7: 10/27/21 05:51 10/28/21 05:57 Labs: Laboratory Results - last 24 hr 10/28/21 10/28/21 05:57 05:57 Anion Gap 15 Estim Creat Clear Calc 125.4 Estimated GFR > 60 Random Glucose 96 Calcium 7.8 L Iron 15 L TIBC 186 L % Saturation 8 L Unsat Iron Binding 171 Lactate Dehydrogenase 384 H C-Reactive Protein 16.82 H Procalcitonin 0.13 Assessment and Plan (1) COVID-19: Status: Acute Assessment and Plan: This is a 66 yo M with a PMH of PE on Eliquis, vaccinated with Pfizer (in ), who began having symptoms of COVID 19, about 10 days ago. Initially they were mild but now have progressed to progressive shortness of breath and hypoxia. He has received monoclonal antibiodies on 10/23/21 and will be admitted for further treatment. acute respiratory failure with hypoxia secondary to COVID 19 fully vaccinated; s/p monoclonal antibodies as outpatient Continue supplemental O2 to maintain saturation >90; currently on 6L Trend inflammatory biomarkers, significant increase in CRP ID rec No Remdesivir d/t increased duration of illness Continue Dexamethasone 6 mg daily for 10 days History of Pulmonary embolism Was off Eliquis for 2 days due to hemoptysis / clots -- this has since improved. Repeat CTA negative for PE -- infiltrates about the same as 2 days ago. Will resume his Eliquis 5mg BID Alcohol use endorses 5-6 beers three times a week no evidence of alcohol withdrawal Full Code DVT pptx -- on Eliquis Endorses his as HCP Attending Dr. Bolanos Quality Stroke Does the patient have a stroke diagnosis?: No VTE Prior VTE?: No VTE Risk Level:: Medical - moderate - high VTE Device Contraindication: Treatment Not Indicated VTE Drug Contraindication: N/A - Med Ordered
[2021-10-28] MEDS: Melatonin 3 MG TABLET 6 MG PO (21:47)
[2021-10-29] VITALS (9 sets, daily range): BP systolic 115–153; BP diastolic 60–95; PULSE 61–94; RESP 18–20; TEMP 36.4–37.3; O2SAT 90–96
[2021-10-29] MEDS: 0.9 % Sodium Chloride Flush 3 ML SYRINGE IVFLUSH ×3 (09:37→23:01)
[2021-10-29] MEDS: Apixaban 5 MG TABLET PO ×2 (09:37→20:29)
[2021-10-29] MEDS: dexAMETHasone sod phosphate 4 MG/ML VIAL 6 MG IVPUSH (09:37)
--- NOTE | 2021-10-29 14:09 | HO.PM.IMPN ---
Subjective Subjective Date of Service: 10/29/21 Interval History: seen and examined this morning follow up for covid 19 episode of hypoxia today while ambulating to bathroom, sats dropped into high 70s. able to recover to 90% after resting, but now requiring higher oxygen dry cough Review of Systems Review of Systems: Yes all other systems are reviewed and are negative Constitutional Constitutional: Denies chills and Denies fever(s) Cardiovascular Cardiovascular: Denies chest pain Gastrointestinal Gastrointestinal: Denies abdominal pain Physical Exam Vital Signs: Vital Signs: Last Vital Signs Temp 98.2 F 10/29/21 11:12 Pulse 73 10/29/21 11:12 Resp 20 10/29/21 11:12 BP 136/64 10/29/21 11:12 Pulse Ox 90 L 10/29/21 12:17 Oxygen Flow Rate 3 10/26/21 03:05 BMI result Body Mass Index 36.1 Const: General: comfortable, alert and awake Nutritional Appearance: overweight Orientation/consciousness: patient oriented x3 HENMT: Head: Yes normocephalic and Yes atraumatic Eyes: Sclerae: sclerae normal Pupils: Equal, round and reactive pupils present Resp: Effort & Inspection: normal respiratory effort and no respiratory distress Cardio: Rate: regular rate Rhythm: regular rhythm GI: Palpation (GI): Soft to palpation and nontender Neuro: General: patient oriented x3 Cranial nerves: Yes CN's II-XII intact bilaterally, Yes Equal, round and reactive pupils present and Yes Bilaterally intact EOM present Extrem: Other: Moving all 4 extremities spontaneously Objective Data Active Medications Acetaminophen (Acetaminophen 325 Mg Tablet) 650 mg PO Q6H PRN PRN Reason: Pain, Mild (Pain Scale 1-3) Apixaban (Apixaban 5 Mg Tablet) 5 mg PO BID [facility] Last Admin: 10/29/21 09:37 Dose: 5 mg Documented by: MICHELLE Benzonatate (Benzonatate 100 Mg Capsule) 100 mg PO TID PRN PRN Reason: Cough Last Admin: 10/27/21 01:06 Dose: 100 mg Documented by: TEA Dexamethasone Sodium Phosphate (Dexamethasone Sod Phosphate 4 Mg/Ml Vial) 6 mg IVPUSH DAILY [facility] Stop: 11/04/21 09:01 Last Admin: 10/29/21 09:37 Dose: 6 mg Documented by: MICHELLE Melatonin (Melatonin 3 Mg Tablet) 6 mg PO BEDTIME PRN PRN Reason: Insomnia Last Admin: 10/28/21 21:47 Dose: 6 mg Documented by: BERHANE Ondansetron HCl (Ondansetron Hcl 4 Mg/2 Ml Vial) 4 mg IVPUSH Q8H PRN PRN Reason: Nausea and Vomiting Pharmacy Consult (Consult Rx Perform Med Rec) 1 each MISCELLANE ONCE PRN PRN Reason: Consult order Sodium Chloride (0.9 % Sodium Chloride Flush 3 Ml Syringe) 3 ml IVFLUSH QSHIFT [facility] Last Admin: 10/29/21 09:37 Dose: 3 ml Documented by: MICHELLE Labs CBC & Chem 7: 10/27/21 05:51 10/28/21 05:57 Assessment and Plan (1) COVID-19: Status: Acute Assessment and Plan: This is a 66 yo M with a PMH of PE on Eliquis, vaccinated with Pfizer (in ), who began having symptoms of COVID 19, about 10 days ago. Initially they were mild but now have progressed to progressive shortness of breath and hypoxia. He has received monoclonal antibiodies on 10/23/21 and will be admitted for further treatment. acute respiratory failure with hypoxia secondary to COVID 19 fully vaccinated; s/p monoclonal antibodies as outpatient Continue supplemental O2 to maintain saturation >90; oxygen demand increasing Trend inflammatory biomarkers, significant increase in CRP 10/28 ID rec No Remdesivir d/t increased duration of illness Continue Dexamethasone 6 mg daily for 10 days History of Pulmonary embolism Was off Eliquis for 2 days due to hemoptysis / clots -- this has since improved. Repeat CTA negative for PE -- infiltrates about the same as 2 days ago. Will resume his Eliquis 5mg BID Alcohol use endorses 5-6 beers three times a week no evidence of alcohol withdrawal Full Code DVT pptx -- on Eliquis Endorses his as HCP Attending Dr. Bolanos Quality Stroke Does the patient have a stroke diagnosis?: No VTE Prior VTE?: No VTE Risk Level:: Medical - moderate - high VTE Device Contraindication: Treatment Not Indicated VTE Drug Contraindication: N/A - Med Ordered
[2021-10-29] MEDS: Melatonin 3 MG TABLET 6 MG PO (23:01)
[2021-10-30 04:00] VITALS: BP 147/80; PULSE 64; RESP 19; TEMP 36.7; O2SAT 94
[2021-10-30 06:23] LABS: MANUAL DIFF FLAG NO
[2021-10-30 06:29] LABS: Basophils Percent Auto 0.1 % (0-2); Eosinophils Absolute Auto 0.1 X10*3/uL (0.0-0.4); Eosinophils Percent Auto 0.6 % (0-4); Hematocrit 38.4 % (42.0-52.0); Imm Gran Abs Auto 0.09 X10*3/uL (0.00-0.03); Imm Gran Pct Auto 1.1 % (0.0-0.4); Lymphocytes Absolute Auto 0.9 X10*3/uL (1.2-4.9); Lymphocytes Percent Auto 10.6 % (20-40); Mean Corpuscular HGB Conc 33.9 g/dl (31.0-36.0); Mean Corpuscular Hemoglobin 29.5 pg (27.0-33.0); Mean Corpuscular Volume 87.1 fL (80.0-98.0); Mean Platelet Volume 9.6 fL (9.4-12.4); Monocytes Absolute Auto 0.4 X10*3/uL (0.1-1.2); Monocytes Percent Auto 4.3 % (2-11); Neutrophils Absolute Auto 6.9 x10*3/uL (2.0-8.3); Neutrophils Percent Auto 83.3 % (45-73); Platelet Count 509 X10*3/uL (160-400); Red Blood Count 4.41 X10*6/uL (4.60-5.80); White Blood Count 8.3 X10*3/uL (4.8-10.8)
[2021-10-30 06:42] LABS: Anion Gap 14 (12-20); Blood Urea Nitrogen 16 mg/dL (9-16); Calcium 8.2 mg/dL (8.4-10.2); Carbon Dioxide 22 mmol/L (22-29); Chloride 105 mmol/L (96-108); Creatinine Clr Calc Pharmacy 135.5; Estimated Glomerular Filt Rate > 60; Glucose Random 139 mg/dL (60-115); Potassium 4.1 mmol/L (3.3-5.1); Sodium 137 mmol/L (135-145)
[2021-10-30 08:00] VITALS: BP 147/78; PULSE 61; RESP 19; TEMP 36.7; O2SAT 92
[2021-10-30] MEDS: Benzonatate 100 MG CAPSULE PO (09:24)
[2021-10-30] MEDS: Apixaban 5 MG TABLET PO ×2 (09:24→21:41)
[2021-10-30] MEDS: 0.9 % Sodium Chloride Flush 3 ML SYRINGE IVFLUSH ×3 (09:24→21:49)
--- NOTE | 2021-10-30 10:02 | MHC.CM.PN ---
Male 66 DX Covid+ Patient continues to require supplemental oxygen. DP home no services. will provide transportation.
[2021-10-30 11:06] VITALS: BP 111/67; PULSE 70; RESP 19; TEMP 36.4; O2SAT 91
--- NOTE | 2021-10-30 14:06 | P.PNIM_ITS ---
Subjective Subjective Date of Service: 10/30/21 Interval History: Seen and examined this morning Follow-up for respiratory failure related to COVID-19 Continues to be hypoxic with ambulation Review of Systems Review of Systems: Yes all other systems are reviewed and are negative Constitutional Constitutional: Denies chills and Denies fever(s) Cardiovascular Cardiovascular: Denies chest pain Respiratory Respiratory: Denies cough Gastrointestinal Gastrointestinal: Denies abdominal pain Physical Exam Vital Signs: Vital Signs: Last Vital Signs Temp 97.5 F 10/30/21 11:06 Pulse 70 10/30/21 11:06 Resp 19 10/30/21 11:06 BP 111/67 10/30/21 11:06 Pulse Ox 91 L 10/30/21 11:06 Oxygen Flow Rate 3 10/26/21 03:05 BMI result Body Mass Index 36.1 Const: General: comfortable, alert and awake Nutritional Appearance: overweight Orientation/consciousness: patient oriented x3 HENMT: Head: Yes normocephalic and Yes atraumatic Eyes: Sclerae: sclerae normal Pupils: Equal, round and reactive pupils present Resp: Other: diminished at bases Effort & Inspection: normal respiratory effort and no respiratory distress Cardio: Rate: regular rate Rhythm: regular rhythm GI: Palpation (GI): Soft to palpation and nontender Neuro: General: patient oriented x3 Cranial nerves: Yes CN's II-XII intact bilaterally, Yes Equal, round and reactive pupils present and Yes Bilaterally intact EOM present Extrem: Other: Moving all 4 extremities spontaneously Objective Data Active Medications Acetaminophen (Acetaminophen 325 Mg Tablet) 650 mg PO Q6H PRN PRN Reason: Pain, Mild (Pain Scale 1-3) Apixaban (Apixaban 5 Mg Tablet) 5 mg PO BID [facility] Last Admin: 10/30/21 09:24 Dose: 5 mg Documented by: MICHELLE Benzonatate (Benzonatate 100 Mg Capsule) 100 mg PO TID PRN PRN Reason: Cough Last Admin: 10/30/21 09:24 Dose: 100 mg Documented by: MICHELLE Dexamethasone Sodium Phosphate (Dexamethasone Sod Phosphate 4 Mg/Ml Vial) 6 mg IVPUSH DAILY [facility] Stop: 11/04/21 09:01 Last Admin: 10/29/21 09:37 Dose: 6 mg Documented by: Melatonin (Melatonin 3 Mg Tablet) 6 mg PO BEDTIME PRN PRN Reason: Insomnia Last Admin: 10/29/21 23:01 Dose: 6 mg Documented by: BERHANE Ondansetron HCl (Ondansetron Hcl 4 Mg/2 Ml Vial) 4 mg IVPUSH Q8H PRN PRN Reason: Nausea and Vomiting Pharmacy Consult (Consult Rx Perform Med Rec) 1 each MISCELLANE ONCE PRN PRN Reason: Consult order Sodium Chloride (0.9 % Sodium Chloride Flush 3 Ml Syringe) 3 ml IVFLUSH QSHIFT TOM Last Admin: 10/30/21 09:24 Dose: 3 ml Documented by: MICHELLE Labs CBC & Chem 7: 10/30/21 06:14 10/30/21 06:14 Labs: Laboratory Results - last 24 hr 10/30/21 10/30/21 06:14 06:14 MCV 87.1 MCH 29.5 MCHC 33.9 RDW 13.0 Plt Count 509 H D MPV 9.6 Immature Gran % (Auto) 1.1 H Neut % (Auto) 83.3 H Lymph % (Auto) 10.6 L [place] % (Auto) 4.3 Eos % (Auto) 0.6 Baso % (Auto) 0.1 Lymph # (Auto) 0.9 L [place] # (Auto) 0.4 Eos # (Auto) 0.1 Baso # (Auto) 0.0 Abs Immat Gran (auto) 0.09 H Absolute Neuts (auto) 6.9 Absolute Nucleated RBC 0.000 Nucleated RBC % (auto) 0.0 Anion Gap 14 Estim Creat Clear Calc 135.5 Estimated GFR > 60 Random Glucose 139 H D Calcium 8.2 L Assessment and Plan (1) COVID-19: Status: Acute Assessment and Plan: This is a 66 yo M with a PMH of PE on Eliquis, vaccinated with Pfizer (in ), who began having symptoms of COVID 19, about 10 days ago. Initially they were mild but now have progressed to progressive shortness of breath and hypoxia. He has received monoclonal antibiodies on 10/23/21 and will be admitted for further treatment. acute respiratory failure with hypoxia secondary to COVID 19 fully vaccinated; s/p monoclonal antibodies as outpatient Continue supplemental O2 to maintain saturation >90; oxygen demand continues to increase Trend inflammatory biomarkers, significant increase in CRP 10/28 ID rec No Remdesivir d/t increased duration of illness Continue Dexamethasone 6 mg daily for 10 days h/o PE Was off Eliquis for 2 days due to hemoptysis / clots -- this has since improved. Repeat CTA negative for PE Continue Eliquis 5mg BID Alcohol use endorses 5-6 beers three times a week no evidence of alcohol withdrawal Full Code DVT pptx -- on Eliquis Endorses his as HCP Attending Dr. Bolanos Quality Stroke Does the patient have a stroke diagnosis?: No VTE Prior VTE?: No VTE Risk Level:: Medical - moderate - high VTE Device Contraindication: Treatment Not Indicated VTE Drug Contraindication: N/A - Med Ordered
[2021-10-30] MEDS: dexAMETHasone sod phosphate 4 MG/ML VIAL 6 MG IVPUSH (14:46)
[2021-10-30 15:44] VITALS: BP 111/55; PULSE 78; RESP 20; TEMP 36.6; O2SAT 95
[2021-10-30 19:21] VITALS: BP 131/71; PULSE 70; RESP 20; TEMP 37.1; O2SAT 94
[2021-10-31] VITALS (8 sets, daily range): BP systolic 120–143; BP diastolic 64–81; PULSE 60–80; RESP 18–20; TEMP 36.5–37.3; O2SAT 8–96
[2021-10-31 07:54] LABS: C Reactive Protein 7.27 mg/dL (< or = 0.50); Lactate Dehydrogenase 288 U/L (118-273)
[2021-10-31 08:24] LABS: Procalcitonin 0.11 ng/mL
[2021-10-31] MEDS: Apixaban 5 MG TABLET PO ×2 (08:50→20:16)
[2021-10-31] MEDS: 0.9 % Sodium Chloride Flush 3 ML SYRINGE IVFLUSH ×3 (08:50→20:18)
[2021-10-31] MEDS: dexAMETHasone sod phosphate 4 MG/ML VIAL 6 MG IVPUSH (08:56)
--- NOTE | 2021-10-31 10:57 | HO.PM.IMPN ---
Subjective Subjective Date of Service: 10/31/21 <SUMA Reynaga - Last Filed: 10/31/21 12:40> 11/01/21 <Fred Bernal MD - Last Filed: 11/01/21 08:15> Interval History: seen and examined this morning follow up for covid 19/respiratory failure still having hypoxia with exertion. no sob at rest, no cough <SUMA Reynaga - Last Filed: 10/31/21 12:40> Review of Systems Review of Systems: Yes all other systems are reviewed and are negative <SUMA Reynaga - Last Filed: 10/31/21 12:40> Constitutional Constitutional: Denies chills and Denies fever(s) <SUMA Reynaga - Last Filed: 10/31/21 12:40> Cardiovascular Cardiovascular: Denies chest pain <SUMA Reynaga - Last Filed: 10/31/21 12:40> Respiratory Respiratory: Denies cough <SUMA Reynaga - Last Filed: 10/31/21 12:40> Gastrointestinal Gastrointestinal: Denies abdominal pain <SUMA Reynaga - Last Filed: 10/31/21 12:40> Physical Exam Vital Signs: Vital Signs: Last Vital Signs Temp 98.2 F 10/31/21 07:58 Pulse 60 10/31/21 07:58 Resp 20 10/31/21 07:58 BP 143/81 H 10/31/21 07:58 Pulse Ox 94 10/31/21 07:58 Oxygen Flow Rate 3 10/26/21 03:05 BMI result Body Mass Index 36.1 <SUMA Reynaga - Last Filed: 10/31/21 12:40> Const: General: comfortable, alert and awake <SUMA Reynaga - Last Filed: 10/31/21 12:40> Nutritional Appearance: overweight <SUMA Reynaga Last Filed: 10/31/21 12:40> Orientation/consciousness: patient oriented x3 <SUMA Reynaga - Last Filed: 10/31/21 12:40> HENMT: Head: Yes normocephalic and Yes atraumatic <SUMA Reynaga - Last Filed: 10/31/21 12:40> Eyes: Sclerae: sclerae normal <SUMA Reynaga - Last Filed: 10/31/21 12:40> Pupils: Equal, round and reactive pupils present <SUMA Reynaga - Last Filed: 10/31/21 12:40> Resp: Effort & Inspection: normal respiratory effort and no respiratory distress <SUMA Reynaga - Last Filed: 10/31/21 12:40> Auscultation: clear to auscultation bilaterally <SUMA Reynaga - Last Filed: 10/31/21 12:40> Cardio: Rate: regular rate <SUMA Reynaga - Last Filed: 10/31/21 12:40> Rhythm: regular rhythm <SUMA Reynaga - Last Filed: 10/31/21 12:40> GI: Palpation (GI): Soft to palpation and nontender <SUMA Reynaga - Last Filed: 10/31/21 12:40> Neuro: General: patient oriented x3 <SUMA Reynaga - Last Filed: 10/31/21 12:40> Cranial nerves: Yes CN's II-XII intact bilaterally, Yes Equal, round and reactive pupils present and Yes Bilaterally intact EOM present <SUMA Reynaga - Last Filed: 10/31/21 12:40> Extrem: Other: Moving all 4 extremities spontaneously <SUMA Reynaga - Last Filed: 10/31/21 12:40> Objective Data Active Medications Acetaminophen (Acetaminophen 325 Mg Tablet) 650 mg PO Q6H PRN PRN Reason: Pain, Mild (Pain Scale 1-3) Apixaban (Apixaban 5 Mg Tablet) 5 mg PO BID [facility] Last Admin: 10/31/21 08:50 Dose: 5 mg Documented by: TORY Benzonatate (Benzonatate 100 Mg Capsule) 100 mg PO TID PRN PRN Reason: Cough Last Admin: 10/30/21 09:24 Dose: 100 mg Documented by: MICHELLE Dexamethasone Sodium Phosphate (Dexamethasone Sod Phosphate 4 Mg/Ml Vial) 6 mg IVPUSH DAILY [facility] Stop: 11/04/21 09:01 Last Admin: 10/31/21 08:56 Dose: 6 mg Documented by: TORY Melatonin (Melatonin 3 Mg Tablet) 6 mg PO BEDTIME PRN PRN Reason: Insomnia Last Admin: 10/29/21 23:01 Dose: 6 mg Documented by: BERHANE Ondansetron HCl (Ondansetron Hcl 4 Mg/2 Ml Vial) 4 mg IVPUSH Q8H PRN PRN Reason: Nausea and Vomiting Pharmacy Consult (Consult Rx Perform Med Rec) 1 each MISCELLANE ONCE PRN PRN Reason: Consult order Sodium Chloride (0.9 % Sodium Chloride Flush 3 Ml Syringe) 3 ml IVFLUSH QSHIFT [facility] Last Admin: 10/31/21 08:50 Dose: 3 ml Documented by: TORY <SUMA Reynaga - Last Filed: 10/31/21 12:40> Labs CBC & Chem 7: : 10/30/21 06:14 10/30/21 06:14 <SUMA Reynaga - Last Filed: 10/31/21 12:40> Labs: Laboratory Results - last 24 hr 10/31/21 10/31/21 07:28 07:28 Lactate Dehydrogenase 288 H C-Reactive Protein 7.27 H Procalcitonin 0.11 <SUMA Reynaga - Last Filed: 10/31/21 12:40> Assessment and Plan (1) COVID-19: Status: Acute <SUMA Reynaga - Last Filed: 10/31/21 12:40> (2) Hypoxia: Status: Acute <SUMA Reynaga - Last Filed: 10/31/21 12:40> Assessment and Plan: This is a 66 yo M with a PMH of PE on EliBondora (by [employer]Pankur), vaccinated with Pfizer (in ), who began having symptoms of COVID 19, about 10 days ago. Initially they were mild but now have progressed to progressive shortness of breath and hypoxia. He has received monoclonal antibiodies on 10/23/21 and will be admitted for further treatment. acute respiratory failure with hypoxia secondary to COVID 19. significant hypoxia with ambulation, oxygen requirement at rest fairly stable fully vaccinated; s/p monoclonal antibodies as outpatient Continue supplemental O2 to maintain saturation >90 ID rec No Remdesivir d/t increased duration of illness Continue Dexamethasone 6 mg daily for 10 days Trend inflammatory biomarkers, significant increase in CRP 10/28, but now downtreding repeat CXR 10/30 showing worsening infiltrates h/o PE Was off Eliquis for 2 days due to hemoptysis / clots - now resolved. Repeat CTA negative for PE Continue Eliquis 5mg BID Alcohol use endorses 5-6 beers three times a week no evidence of alcohol withdrawal Full Code DVT pptx -- on Eliquis Endorses his as HCP Attending Dr. Bernal <SUMA Reynaga - Last Filed: 10/31/21 12:40> Quality Stroke Does the patient have a stroke diagnosis?: No <SUMA Reynaga - Last Filed: 10/31/21 12:40> VTE Prior VTE?: No <SUMA Reynaga - Last Filed: 10/31/21 12:40> VTE Risk Level:: Medical - moderate - high <SUMA Reynaga - Last Filed: 10/31/21 12:40> VTE Device Contraindication: Treatment Not Indicated <SUMA Reynaga - Last Filed: 10/31/21 12:40> VTE Drug Contraindication: N/A - Med Ordered <SUMA Reynaga - Last Filed: 10/31/21 12:40>
[2021-11-01] VITALS (8 sets, daily range): BP systolic 121–148; BP diastolic 62–86; PULSE 52–98; RESP 18–20; TEMP 36.2–37.1; O2SAT 91–95
[2021-11-01] MEDS: Melatonin 3 MG TABLET 6 MG PO ×2 (03:24→23:12)
[2021-11-01 08:16] LABS: MANUAL DIFF FLAG NO
[2021-11-01 08:19] LABS: Basophils Percent Auto 0.1 % (0-2); Eosinophils Absolute Auto 0.1 X10*3/uL (0.0-0.4); Eosinophils Percent Auto 1.2 % (0-4); Hematocrit 41.8 % (42.0-52.0); Hemoglobin 13.9 g/dl (14.0-18.0); Imm Gran Abs Auto 0.12 X10*3/uL (0.00-0.03); Imm Gran Pct Auto 1.3 % (0.0-0.4); Lymphocytes Absolute Auto 2.1 X10*3/uL (1.2-4.9); Lymphocytes Percent Auto 22.4 % (20-40); Mean Corpuscular HGB Conc 33.3 g/dl (31.0-36.0); Mean Corpuscular Volume 87.3 fL (80.0-98.0); Mean Platelet Volume 9.4 fL (9.4-12.4); Monocytes Absolute Auto 0.8 X10*3/uL (0.1-1.2); Monocytes Percent Auto 7.9 % (2-11); Neutrophils Absolute Auto 6.4 x10*3/uL (2.0-8.3); Neutrophils Percent Auto 67.1 % (45-73); Platelet Count 554 X10*3/uL (160-400); Red Blood Count 4.79 X10*6/uL (4.60-5.80); Red Cell Distribution Width 13.1 % (11.0-16.0); White Blood Count 9.5 X10*3/uL (4.8-10.8)
[2021-11-01 08:40] LABS: Anion Gap 13 (12-20); Blood Urea Nitrogen 17 mg/dL (9-16); Calcium 8.3 mg/dL (8.4-10.2); Carbon Dioxide 25 mmol/L (22-29); Chloride 104 mmol/L (96-108); Creatinine Clr Calc Pharmacy 123.9; Estimated Glomerular Filt Rate > 60; Glucose Random 81 mg/dL (60-115); Potassium 4.3 mmol/L (3.3-5.1); Sodium 138 mmol/L (135-145)
[2021-11-01] MEDS: Apixaban 5 MG TABLET PO ×2 (08:45→20:40)
[2021-11-01] MEDS: 0.9 % Sodium Chloride Flush 3 ML SYRINGE IVFLUSH ×3 (08:45→20:40)
[2021-11-01] MEDS: dexAMETHasone sod phosphate 4 MG/ML VIAL 6 MG IVPUSH (08:50)
--- NOTE | 2021-11-01 11:51 | P.PNIM_ITS ---
Subjective Subjective Date of Service: 11/01/21 <SUMA Reynaga - Last Filed: 11/01/21 11:55> 11/02/21 <Fred Bernal MD - Last Filed: 11/02/21 09:05> Interval History: Seen and examined this morning Follow-up for respiratory failure secondary to COVID-19 No overnight events feeling well this morning, no cough <SUMA Reynaga - Last Filed: 11/01/21 11:55> Review of Systems Review of Systems: Yes all other systems are reviewed and are negative <SUMA Reynaga - Last Filed: 11/01/21 11:55> Constitutional Constitutional: Denies chills and Denies fever(s) <SUMA Reynaga - Last Filed: 11/01/21 11:55> Cardiovascular Cardiovascular: Denies chest pain <SUMA Reynaga - Last Filed: 11/01/21 11:55> Respiratory Respiratory: Denies cough <SUMA Reynaga - Last Filed: 11/01/21 11:55> Gastrointestinal Gastrointestinal: Denies abdominal pain <SUMA Reynaga - Last Filed: 11/01/21 11:55> Physical Exam Vital Signs: Vital Signs: Last Vital Signs Temp 97.3 F 11/01/21 11:20 Pulse 71 11/01/21 11:20 Resp 19 11/01/21 11:20 BP 123/71 11/01/21 11:20 Pulse Ox 91 L 11/01/21 11:20 Oxygen Flow Rate 3 10/26/21 03:05 BMI result Body Mass Index 36.1 <SUMA Reynaga - Last Filed: 11/01/21 11:55> Const: General: comfortable, no acute distress, alert and awake <SUMA Reynaga Last Filed: 11/01/21 11:55> Nutritional Appearance: overweight <SUMA Reynaga - Last Filed: 11/01/21 11:55> Orientation/consciousness: patient oriented x3 <SUMA Reynaga - Last Filed: 11/01/21 11:55> HENMT: Head: Yes normocephalic and Yes atraumatic <SUMA Reynaga - Last Filed: 11/01/21 11:55> Eyes: Sclerae: sclerae normal <SUMA Reynaga - Last Filed: 11/01/21 11:55> Pupils: Equal, round and reactive pupils present <SUMA Reynaga - Last Filed: 11/01/21 11:55> Resp: Other: diminished at bases <SUMA Reynaga - Last Filed: 11/01/21 11:55> Effort & Inspection: normal respiratory effort and no respiratory distress <SUMA Reynaga - Last Filed: 11/01/21 11:55> Cardio: Rate: regular rate <SUMA Reynaga - Last Filed: 11/01/21 11:55> Rhythm: regular rhythm <SUMA Reynaga - Last Filed: 11/01/21 11:55> GI: Inspection: No distended <SUMA Reynaga - Last Filed: 11/01/21 11:55> Neuro: General: patient oriented x3 <SUMA Reynaga - Last Filed: 11/01/21 11:55> Cranial nerves: Yes CN's II-XII intact bilaterally, Yes Equal, round and reactive pupils present and Yes Bilaterally intact EOM present <SUMA Reynaga - Last Filed: 11/01/21 11:55> Extrem: Other: Moving all 4 extremities spontaneously; no leg edema <SUMA Reynaga Last Filed: 11/01/21 11:55> Objective Data Active Medications Acetaminophen (Acetaminophen 325 Mg Tablet) 650 mg PO Q6H PRN PRN Reason: Pain, Mild (Pain Scale 1-3) Apixaban (Apixaban 5 Mg Tablet) 5 mg PO BID [facility] Last Admin: 11/01/21 08:45 Dose: 5 mg Documented by: TORY Benzonatate (Benzonatate 100 Mg Capsule) 100 mg PO TID PRN PRN Reason: Cough Last Admin: 10/30/21 09:24 Dose: 100 mg Documented by: MICHELLE Dexamethasone Sodium Phosphate (Dexamethasone Sod Phosphate 4 Mg/Ml Vial) 6 mg IVPUSH DAILY [facility] Stop: 11/04/21 09:01 Last Admin: 11/01/21 08:50 Dose: 6 mg Documented by: TORY Melatonin (Melatonin 3 Mg Tablet) 6 mg PO BEDTIME PRN PRN Reason: Insomnia Last Admin: 11/01/21 03:24 Dose: 6 mg Documented by: VERONIKA Ondansetron HCl (Ondansetron Hcl 4 Mg/2 Ml Vial) 4 mg IVPUSH Q8H PRN PRN Reason: Nausea and Vomiting Pharmacy Consult (Consult Rx Perform Med Rec) 1 each MISCELLANE ONCE PRN PRN Reason: Consult order Sodium Chloride (0.9 % Sodium Chloride Flush 3 Ml Syringe) 3 ml IVFLUSH QSHIFT TOM Last Admin: 11/01/21 08:45 Dose: 3 ml Documented by: TORY <SUMA Reynaga - Last Filed: 11/01/21 11:55> Labs CBC & Chem 7: : 11/01/21 08:11 11/01/21 08:11 <SUMA Reynaga - Last Filed: 11/01/21 11:55> Labs: Laboratory Results - last 24 hr 11/01/21 11/01/21 08:11 08:11 MCV 87.3 MCH 29.0 MCHC 33.3 RDW 13.1 Plt Count 554 H MPV 9.4 Immature Gran % (Auto) 1.3 H Neut % (Auto) 67.1 Lymph % (Auto) 22.4 [place] % (Auto) 7.9 Eos % (Auto) 1.2 Baso % (Auto) 0.1 Lymph # (Auto) 2.1 [place] # (Auto) 0.8 Eos # (Auto) 0.1 Baso # (Auto) 0.0 Abs Immat Gran (auto) 0.12 H Absolute Neuts (auto) 6.4 Absolute Nucleated RBC 0.000 Nucleated RBC % (auto) 0.0 Anion Gap 13 Estim Creat Clear Calc 123.9 Estimated GFR > 60 Random Glucose 81 D Calcium 8.3 L <SUMA Reynaga - Last Filed: 11/01/21 11:55> Assessment and Plan (1) Pulmonary embolism: Status: Acute <SUMA Reynaga - Last Filed: 11/01/21 11:55> (2) COVID-19: Status: Acute <SUMA Reynaga - Last Filed: 11/01/21 11:55> (3) Acute respiratory failure with hypoxia: Status: Acute <SUMA Reynaga - Last Filed: 11/01/21 11:55> Assessment and Plan: This is a 66 yo M with a PMH of PE on Eliquis, vaccinated with Pfizer (in ), who began having symptoms of COVID 19, about 10 days ago. Initially they were mild but now have progressed to progressive shortness of breath and hypoxia. He has received monoclonal antibiodies on 10/23/21 and will be admitted for further treatment. acute respiratory failure with hypoxia secondary to COVID 19. significant hypoxia with ambulation, oxygen requirement at rest fairly stable fully vaccinated; s/p monoclonal antibodies as outpatient Continue supplemental O2 to maintain saturation >90 ID rec No Remdesivir d/t increased duration of illness Continue Dexamethasone 6 mg daily for 10 days Trend inflammatory biomarkers, significant increase in CRP 10/28, but now downtrending repeat CXR 10/30 showing worsening infiltrates h/o PE Was off Eliquis for 2 days due to hemoptysis / clots - now resolved. Repeat CTA negative for PE Continue Eliquis 5mg BID Alcohol use endorses 5-6 beers three times a week no evidence of alcohol withdrawal Full Code DVT pptx - on Eliquis Endorses his as HCP Attending Dr. Bernal <SUMA Reynaga - Last Filed: 11/01/21 11:55> Quality Stroke Does the patient have a stroke diagnosis?: No <SUMA Reynaga - Last Filed: 11/01/21 11:55> VTE Prior VTE?: No <SUMA Reynaga - Last Filed: 11/01/21 11:55> VTE Risk Level:: Medical - moderate - high <SUMA Reynaga - Last Filed: 11/01/21 11:55> VTE Device Contraindication: Treatment Not Indicated <SUMA Reynaga - Last Filed: 11/01/21 11:55> VTE Drug Contraindication: N/A - Med Ordered <SUMA Reynaga - Last Filed: 11/01/21 11:55>
[2021-11-02 03:16] VITALS: BP 127/70; PULSE 58; RESP 20; TEMP 36.8; O2SAT 91
[2021-11-02 07:42] VITALS: BP 113/70; PULSE 59; RESP 18; TEMP 36.6; O2SAT 93
[2021-11-02] MEDS: dexAMETHasone sod phosphate 4 MG/ML VIAL 6 MG IVPUSH (08:24)
[2021-11-02] MEDS: Apixaban 5 MG TABLET PO (08:24)
[2021-11-02] MEDS: 0.9 % Sodium Chloride Flush 3 ML SYRINGE IVFLUSH (08:25)
--- NOTE | 2021-11-02 10:52 | HO.PM.IMPN ---
Subjective Subjective Date of Service: 11/02/21 Interval History: Seen in f/u for covid related, acute hypoxic respiratory failure, covid 19, overall doing well, feels well, gets sob with exertion. Review of Systems Gen: no fever Resp: no sob, no cough CV: no chest, no PARIKH, no leg edema GI: No n/v, no abd pain Neuro: No confusion Physical Exam Vital Signs: Vital Signs: Last Vital Signs Temp 97.8 F 11/02/21 07:42 Pulse 59 11/02/21 07:42 Resp 18 11/02/21 07:42 BP 113/70 11/02/21 07:42 Pulse Ox 93 11/02/21 07:42 Oxygen Flow Rate 3 10/26/21 03:05 BMI result Body Mass Index 36.1 Const: Other: Constitutional - Awake and Alert, No apparent distress Eyes - PERRLA, EOMI Cardiovascular - S1S2, RRR, No edema Respiratory - Normal lung expansion, No rales or wheezes, no respiratory distress at rest Gastrointestinal - NT / ND; +BS; No rebound or guarding - No CVA tenderness Extremities - no calf tenderness bilaterally, no swelling Musculoskeletal - Normal inspection, normal ROM Skin - Warm/Dry Neurological - Alert & oriented x3, No focal deficit Psychological - Appropriate affect Objective Data Active Medications Acetaminophen (Acetaminophen 325 Mg Tablet) 650 mg PO Q6H PRN PRN Reason: Pain, Mild (Pain Scale 1-3) Apixaban (Apixaban 5 Mg Tablet) 5 mg PO BID [facility] Last Admin: 11/02/21 08:24 Dose: 5 mg Documented by: NISREEN Benzonatate (Benzonatate 100 Mg Capsule) 100 mg PO TID PRN PRN Reason: Cough Last Admin: 10/30/21 09:24 Dose: 100 mg Documented by: MICHELLE Dexamethasone Sodium Phosphate (Dexamethasone Sod Phosphate 4 Mg/Ml Vial) 6 mg IVPUSH DAILY [facility] Stop: 11/04/21 09:01 Last Admin: 11/02/21 08:24 Dose: 6 mg Documented by: NISREEN Melatonin (Melatonin 3 Mg Tablet) 6 mg PO BEDTIME PRN PRN Reason: Insomnia Last Admin: 11/01/21 23:12 Dose: 6 mg Documented by: JET Ondansetron HCl (Ondansetron Hcl 4 Mg/2 Ml Vial) 4 mg IVPUSH Q8H PRN PRN Reason: Nausea and Vomiting Pharmacy Consult (Consult Rx Perform Med Rec) 1 each MISCELLANE ONCE PRN PRN Reason: Consult order Sodium Chloride (0.9 % Sodium Chloride Flush 3 Ml Syringe) 3 ml IVFLUSH QSHIFT [facility] Last Admin: 11/02/21 08:25 Dose: 3 ml Documented by: NISREEN Labs CBC & Chem 7: 11/01/21 08:11 11/01/21 08:11 Assessment and Plan (1) Acute respiratory failure with hypoxia: Status: Acute (2) Pulmonary embolism: Status: Acute (3) COVID-19: Status: Acute (4) Hypoxia: Status: Acute Assessment and Plan: 66 yo M with a PMH of PE on Eliquis, vaccinated with Pfizer (in ), who began having symptoms of COVID 19, about 10 days ago. Initially they were mild but now have progressed to progressive shortness of breath and hypoxia. He has received monoclonal antibiodies on 10/23/21 and will be admitted for further treatment. acute respiratory failure with hypoxia secondary to COVID 19. significant hypoxia with ambulation, oxygen requirement at rest fairly stable fully vaccinated; s/p monoclonal antibodies as outpatient Continue supplemental O2 to maintain saturation >90 ID rec No Remdesivir d/t increased duration of illness Continue Dexamethasone 6 mg daily for 10 days Trend inflammatory biomarkers, significant increase in CRP 10/28, but now downtrending repeat CXR 10/30 showing worsening infiltrates Assess for home O2 h/o PE Was off Eliquis for 2 days due to hemoptysis / clots - now resolved. Repeat CTA negative for PE Continue Eliquis 5mg BID Alcohol use endorses 5-6 beers three times a week no evidence of alcohol withdrawal Full Code DVT pptx - on Eliquis Endorses his as HCP PT eval Quality Stroke Does the patient have a stroke diagnosis?: No VTE Prior VTE?: No VTE Risk Level:: Medical - moderate - high VTE Device Contraindication: Treatment Not Indicated VTE Drug Contraindication: N/A - Med Ordered
[2021-11-02 11:57] VITALS: BP 113/70; PULSE 59; O2SAT 93
[2021-11-02 12:00] VITALS: BP 110/63; PULSE 70; RESP 18; TEMP 36.8; O2SAT 92
[2021-11-02 12:20] VITALS: PULSE 89; O2SAT 90
--- NOTE | 2021-11-02 12:46 | P.DS_ITS ---
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 He is known to be COVID positive. 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 He reports that he underwent formal testing several days later, which confirmed COVID positivity. He reports that his symptoms progressed to include fevers over the next several days with associated diarrhea. He initially presented to the ED on 10/22 for this with essentially a negative work up and specifically no hy poxia. He was discharged home and returned to the ED on 10/24 after bouts of hemoptysis with bloot clots (this has since improved and is now only blood tinged). During this ED visit, he again was not hypoxic and he was discharged home with instructions to hold his Eliquis for 2-3 days. He now returns today with worsening shortness of breath and hypoxia (measured his saturations at home which were 88% and below). In the interim, the patient has completed monoclonal antibiotics at [facility] on 10/23.? Upon arrival to the ED, patient was noted to have saturations between 90 and 92% at rest on 1L. With exetion he dropped to 86%. He will not be admitted for further treatment . Covid 19. Acute respiratory failure with hypoxia secondary to COVID 19. significant hypoxia with ambulation initially, oxygen requirement at rest fairly stable, fully vaccinated; s/p monoclonal antibodies as outpatient? treated with supplemental oxygen. ID rec No Remdesivir d/t increased duration of illness Continue Dexamethasone 6 mg daily for 10 days, 2 more days left . Inflammatory markers trended down home. O2 eval for 3 L of oxygen with activity, room air at rest. Stable for discharge. Patient to follow up with his PCP for further instructions regarding his oxygen. Time Spent with Patient Time attestation: Total time spent providing and/or coordinating discharge services: Discharge coordination time: Greater than 30 minutes Quality: Stroke Does the patient have a stroke diagnosis?: No Physical Exam Verdana 4l Vital Signs: Verdana 4d Verdana 4d Vital Signs: Verdana 4d Verdana 4Bd Last Vital Signs Verdana 4d Feeder Catcher New 4d Feeder Catcher New 4d Temp 98.2 F 11/02/21 12:00 Feeder Catcher New 4d Pulse 70 11/02/21 12:00 Feeder Catcher NewNew 4d Resp 18 11/02/21 12:00 BP 110/63 11/02/21 12:00 Pulse Ox 92 11/02/21 12:00 Oxygen Flow Rate 3 10/26/21 03:05 BMI result Body Mass Index 36.1 Appearing in no acute distress head is normocephalic atraumatic eyes pupils are PERRLA sclera is anicteric mouth throat mucous membranes are intact and moist neck is supple no lymphadenopathy, no JVD noted lung sounds are clear to auscultation heart regular rate rhythm, clear S1, S2 positive bowel sounds, abdomen is soft, nontender neuro patient is alert x3, no focal deficits Discharge Plan Discharge Anticipated Discharge Date/Time: 11/02/21 12:45 Patient Disposition: Home, Self-Care Discharge Diagnosis: COVID-19 Referrals: Neel Stacy MD [Primary Care Provider] - 1 Week Discharge Medications: New Eliquis 5 mg Tablet 5 mg PO BID Qty: 60 RF: 0 dexamethasone [Decadron] 6 mg tablet 6 mg PO DAILY Qty: 2 RF: 0 Continued dexamethasone [Decadron] 6 mg tablet 6 mg PO DAILY Qty: 7 RF: 0 acetaminophen 650 mg Tablet 650 mg PO Q6H PRN (Reason: Pain) RF: 0 Airborne Gummy 250-11.66 mg Tablet,Chewable 1 tab PO DAILY RF: 0 Discontinued Eliquis 2.5 mg tablet 1 tab PO BID RF: 0 Discharge Orders: Discharge Order (Routine); Ordered 11/02/21 Ordered By: Fernanda Bhatti Diet: advance to usual diet Activity on Discharge: As tolerated Stand Alone Forms: Patient Portal Discharge page Care Plan Goals: completely resolution of COVID symptoms Health Concerns: COVID-19 Plan of Treatment: Quarantine: According to the Centers for disease control. Persons with COVID-19 who have symptoms and were directed to care for themselves at home may discontinue isolation under the following conditions: -At least 10 days have passed since symptom onset and -At least 24 hours have passed since resolution of fever without the use of fever-reducing medications and -Other symptoms have improved. Safety: Wear a mask Wash your hands or use hand limousine driver before putting on your mask. Wear your mask over your nose and mouth and secure it under your chin. Stay 6 feet away from others Inside your home: Avoid close contact with people who are sick. If possible, maintain 6 feet between the person who is sick and other household members. Outside your home: Put 6 feet of distance between yourself and people who don't live in your household. Remember that some people without symptoms may be able to spread virus. Stay at least 6 feet (about 2 arm lengths) from other people. Keeping distance from others is especially important for people who are at higher risk of getting very sick. Avoid crowds and poorly ventilated spaces Avoid indoor spaces that do not offer fresh air from the outdoors as much as possible. Wash your hands often with soap and water for at least 20 seconds especially after you have been in a public place, or after blowing your nose, coughing, or sneezing. Cover coughs and sneezes Clean high touch surfaces daily. Be alert for symptoms. Watch for fever, cough, shortness of breath, or other symptoms of COVID-19. Follow CDC guidance if symptoms develop. Follow-up with her primary care provider within 1 week for directions regarding her oxygen requirements. He will be sent home with oxygen through [facility]. He may use 3 L of oxygen with activity. Continue Decadron for 2 more days and then stop Your Eliquis was increased to 5 mg twice daily Assessment: see discharge summary
--- NOTE | 2021-11-02 13:33 | MHC.CM.PN ---
PT CLEARED TO DC HOME TODAY WITH NO SERVICES. PT WILL REQUIRE 3L OF O2 WITH [facility] (PROVIDED BY RT FOR TRANSPORT) PER CM NOTES, PTS WILL TRANSPORT
[2021-11-02 13:42] LABS: CRP High Sensitivity >10.0 mg/L
== END 2021-11-02 14:30 | disposition home or self-care (01) | DRG 177 ==
LOC: HO.ED 07:28 → HO.EDOVER 10:44 → HO.IMC 21:20
PROVIDERS: Physician Assistant Medical; Admitting Provider Family Medicine; Emergency Provider Student in an Organized Health Care Education/Training Program; PCP Internal Medicine; Visit Provider Nurse Practitioner Acute Care
DX: U07.1 COVID-19 (principal); J96.01 Acute respiratory failure with hypoxia; Z86.711 Personal history of pulmonary embolism; Z72.89 Other problems related to lifestyle; Z88.5 Allergy status to narcotic agent; Z79.01 Long term (current) use of anticoagulants; Z79.899 Other long term (current) drug therapy
CPT/HCPCS: 36415; 71045; 71275; 80048; 80053; 82728; 83540; 83615; 83735; 84145; 85025; 85610; 86140; 86141; 96361; 96374; 97162; 99284; 99285; J1100; Q9967

== ENCOUNTER 2024-06-22 00:08 | Emergency (ER) | payer OTHER, MEDICARE, BC, SELFPAY ==
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
[2024-06-22 00:13] VITALS: BP 148/82; BP 173/97; PULSE 102; PULSE 97; RESP 14; TEMP 36.6; O2SAT 93; O2SAT 96; BMI 41.7
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
[2024-06-22] MEDS: Lidocaine HCl 2 % MPF 5 ML VIAL INFILTRATI (01:41)
[2024-06-22] MEDS: Cyclobenzaprine HCl 10 MG TABLET PO (02:14)
[2024-06-22] MEDS: Acetaminophen 325 MG TABLET 975 MG PO (02:14)
[2024-06-22 02:15] VITALS: BP 178/83; PULSE 81; RESP 16; TEMP 36.8; O2SAT 96
--- NOTE | 2024-06-22 02:16 | PC.NURSE ---
pt medicated per mar, tolerated well with water.
[2024-06-22 04:06] VITALS: BP 155/84; PULSE 79; RESP 16; TEMP 36.6; O2SAT 96
[2024-06-22 04:44] VITALS: BP 155/84; PULSE 79; RESP 16; TEMP 36.6; O2SAT 96
== END 2024-06-22 04:45 | disposition home or self-care (01) ==
PROVIDERS: Emergency Provider Emergency Medicine
DX: M54.6 Pain in thoracic spine (principal); S01.111A Laceration without foreign body of right eyelid and periocular area, initial encounter; S80.12XA Contusion of left lower leg, initial encounter; V43.62XA Car passenger injured in collision with other type car in traffic accident, initial encounter; Y93.89 Activity, other specified; Y92.414 Local residential or business street as the place of occurrence of the external cause; Y99.9 Unspecified external cause status
CPT/HCPCS: 12011; 70450; 72125; 73590; 99284

== ENCOUNTER 2025-04-19 15:10 | Emergency (ER) | payer MEDICARE, BC, SELFPAY ==
--- NOTE | ~2025-04-19 | CT_ITS ---
CLINICAL HISTORY: right flank pain CT abdomen and pelvis without contrast Comparison: None Findings: There is a small hiatal hernia. Rest of the GI tract is unremarkable. There is a right parapelvic renal cyst versus mild dilatation of the central renal collecting system. There is no jose angel hydronephrosis. There is no evidence of nephrolithiasis. No bowel obstruction, pneumoperitoneum, or pneumatosis. Pelvic contents unremarkable. Normal appendix. No acute fracture. IMPRESSION: There is a right parapelvic renal cyst versus mild dilatation of the central renal collecting system. There is no jose angel hydronephrosis. There is no evidence of nephrolithiasis. This document has been electronically signed by: Julius Paulino MD on 04/20/2025 09:34:09
[2025-04-19 15:19] VITALS: BP 142/70; PULSE 70; RESP 18; TEMP 36.2; O2SAT 96; BMI 39.1
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
[2025-04-19 15:50] LABS: Basophils Absolute Auto 0.1 X10*3/uL (0.0-0.2); Basophils Percent Auto 0.7 % (0-2); Eosinophils Absolute Auto 0.2 X10*3/uL (0.0-0.4); Eosinophils Percent Auto 2.4 % (0-4); Hematocrit 45.1 % (42.0-52.0); Hemoglobin 15.5 g/dl (14.0-18.0); Imm Gran Abs Auto 0.03 X10*3/uL (0.00-0.03); Imm Gran Pct Auto 0.3 % (0.0-0.4); Lymphocytes Absolute Auto 2.8 X10*3/uL (1.2-4.9); Lymphocytes Percent Auto 30.9 % (20-40); MANUAL DIFF FLAG SCAN; Mean Corpuscular HGB Conc 34.4 g/dl (31.0-36.0); Mean Corpuscular Hemoglobin 29.9 pg (27.0-33.0); Mean Corpuscular Volume 86.9 fL (80.0-98.0); Monocytes Absolute Auto 0.9 X10*3/uL (0.1-1.2); Neutrophils Absolute Auto 5.1 x10*3/uL (2.0-8.3); Neutrophils Percent Auto 55.7 % (45-73); PLT CLUMP 1; Red Blood Count 5.19 X10*6/uL (4.60-5.80); SCAN SMEAR FLAG 1
[2025-04-19 15:53] LABS: White Blood Count 9.2 X10*3/uL (4.8-10.8)
[2025-04-19 15:57] LABS: Appearance Urine Clear; Color Urine Yellow; Glucose Urine UA Negative (Negative); Leukocyte Esterase Urine Negative (Negative); Nitrite Urine Negative (Negative); PH 5.5 (5.0-9.0); Specific Gravity - Urine 1.025 (1.005-1.025); UMIC TRIGGER UACC YES; Urine Blood Trace (Negative); Urine Ketones Negative (Negative); Urine Protein Negative (Neg-Trace)
[2025-04-19 16:00] LABS: Bacteria Urine None Seen (None Seen); Hyaline Casts Urine 0-2 /LPF (0-2); RBC Urine 0-2 /HPF (0-2); Squamous Epithelial Cell Urine 0-2 /HPF (0-2); WBC Urine 0-5 /HPF (0-5)
[2025-04-19 16:04] LABS: Alanine Aminotransferase 34 U/L (0-40); Albumin Level 4.4 g/dL (3.5-5.0); Anion Gap 14 (12-20); Aspartate Amino Transferase 37 U/L (5-37); Bilirubin Total 0.4 mg/dL (0.0-1.0); Blood Urea Nitrogen 21 mg/dL (9-16); Calcium 9.3 mg/dL (8.4-10.2); Carbon Dioxide 25 mmol/L (22-29); Chloride 107 mmol/L (96-108); Creatinine Clr Calc Pharmacy 119.3; Estimated Glomerular Filt Rate > 60; Glucose Random 90 mg/dL (60-115); Lipase 25 U/L (8-78); Potassium 4.4 mmol/L (3.3-5.1); Sodium 142 mmol/L (135-145); Total Protein 7.3 g/dL (6.5-8.0)
[2025-04-19 16:10] LABS: Mean Platelet Volume 10.1 fL (9.4-12.4); Platelet Count 196 X10*3/uL (160-400)
[2025-04-19 16:19] LABS: SLIDE REVIEW VERIFIED
[2025-04-19 16:24] LABS: Alkaline Phosphatase 88 U/L (39-117)
[2025-04-19 17:07] VITALS: BP 156/83; PULSE 68; RESP 18; TEMP 36.3; O2SAT 95
--- NOTE | 2025-04-19 17:26 | PC.NURSE ---
Pt describes right lower back pain which is worse now after lying in stretcher. was also worse after raising arms for CT.
[2025-04-19 18:11] VITALS: BP 151/77; PULSE 62; RESP 16; TEMP 36.6; O2SAT 96
--- NOTE | 2025-04-19 20:54 | PC.NURSE ---
floating RN - pt left without receiving d/c paperwork/tylenol. Per MD, he spoke with patient about d/c instructions prior to leaving ED.
[2025-04-19 20:55] VITALS: BP 151/77; PULSE 62; RESP 16; TEMP 36.6; O2SAT 96
== END 2025-04-19 20:56 | disposition home or self-care (01) ==
PROVIDERS: Physician Assistant; Emergency Provider Emergency Medicine; PCP Internal Medicine
DX: M54.50 Low back pain, unspecified (principal); R10.2 Pelvic and perineal pain; Z86.711 Personal history of pulmonary embolism; Z79.01 Long term (current) use of anticoagulants
CPT/HCPCS: 36415; 74176; 80053; 81001; 83690; 85025; 99284